=== PATIENT | male | born 1925 | race Caucasian/White ===

== ENCOUNTER 2017-04-08 14:07 | Emergency (ER) | payer MEDICARE, BC ==
--- NOTE | 2017-04-08 14:20 | EDM.PDOC ---
[id number] Complaint: CONSTIPATION Time Seen by Provider: 04/08/17 14:19 Source of Information: Reports: Patient History Limitations: Reports: No Limitations - History of Present Illness INITIAL COMMENTS - FREE TEXT/NARRATIVE: 89-year-old male brought to the ED due to diffuse abdominal pain. His brought him to the ED. History suggests that he said no good bowel movement for about 10 days. He did have a small bowel movement yesterday. Having diffuse abdominal cramping pain with nausea and no vomiting. As constant pressure in the rectum but denies any bleeding per rectum. He feels that he is entering his bladder satisfactorily. No recent changes to his medications and then adjustments to his Coumadin doses. Of note he is on carbidopa levodopa for the last 3-1/2 years for Parkinson's disease. He may well have an autonomic nervous system dysfunction tubing to his constipation. He has been using Senokot on a when necessary basis. Onset: Gradual Onset Date: 03/29/17 Duration: Day(s): Location: Reports: Abdomen (See history present illness) Quality: Reports: Ache, Other Severity: Moderate (Cramping) Improves with: Reports: None Worsens with: Reports: Eating Context: Denies: Activity, Exercise, Lifting, Sick Contact, Trauma, Other Associated Symptoms: Reports: Loss of Appetite, Malaise, Syncope (Near-syncope a good portion of the time). 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 (see below) (No recent use of suppositories or oral Citroma.) Abdominal Pain Score (Numeric/FACES): 2 - Related Data Allergies Allergy/AdvReac Type Severity Reaction Status Date / Time Penicillins Allergy Unknown Verified 04/08/17 14:24 Home Meds: Home Meds Albuterol [Ventolin HFA] 2 puff INH Q6H PRN 02/02/15 [History] Ascorbate Calcium [Vitamin C] 500 mg PO DAILY 02/02/15 [History] Carbidopa/Levodopa [Carbidopa-Levodopa 25-100] 1 tab PO BID 02/02/15 [History] Ergocalciferol (Vitamin D2) [Vitamin D] 400 units PO DAILY 02/02/15 [History] Fluticasone/Salmeterol [Advair Diskus 250-50] 1 puff INH BID 02/02/15 [History] Furosemide 40 mg PO DAILY 02/02/15 [History] Lecithin 1 tab PO DAILY 02/02/15 [History] Lisinopril 5 mg PO DAILY 02/02/15 [History] Tamsulosin [Flomax] 0.4 mg PO DAILY 02/02/15 [History] Vitamin A 8,000 units PO DAILY 02/02/15 [History] Vitamin B Complex 100 mg PO DAILY 02/02/15 [History] Vitamin E 400 unit PO DAILY 02/02/15 [History] Warfarin [Coumadin] 2.5 mg PO WEFR 02/02/15 [History] Warfarin [Coumadin] 5 mg PO SUMOTUTHSA 02/02/15 [History] Levofloxacin [Levaquin] 750 mg PO Q48H #7 tab 02/03/15 [Rx] Past Medical History Gastrointestinal History: Reports: Other (See Below) Other Gastrointestinal History: multiple hernias Neurological History: Reports: Other (See Below) Other Neuro History: brain aneurysm repair - Past Surgical History Musculoskeletal Surgical History: Reports: Other (See Below) Social & Family History - Tobacco Use Smoking Status *Q: Never Smoker Second Hand Smoke Exposure: No - Alcohol Use Days Per Week of Alcohol Use: 0 - Recreational Drug Use Recreational Drug Use: No - Living Situation & Occupation Living situation: Reports: Occupation: Retired ED [employer] GENER[employer] - Review of Systems Review Of Systems: See Below Constitutional: Reports: Malaise, Weakness, Fatigue, Decreased Appetite, Weight Loss. Denies: Fever, Chills HEENT: Reports: Glasses Respiratory: Reports: Shortness of Breath. Denies: Wheezing, Pleuritic Chest Pain (On exertion), Cough, Sputum Cardiovascular: Reports: Blood Pressure Problem (Mild hypertension but controlled with medication.), Dyspnea on Exertion, Lightheadedness (Seems to exhibit orthostatic hypotension a good portion of the time suggesting an autonomic nervous system dysfunction. This may be being aggravated by alpha- ye in Flomax.). Denies: Chest Pain (Chronically) Endocrine: Reports: Fatigue GI/Abdominal: Reports: Abdominal Pain, Constipation (Cramping. Chronic prongs of constipation). Denies: Hematemesis, Hematochezia, Melena, Stool Incontinence , Vomiting : Reports: Frequency, Other (Has a big prostate. Nocturia 3) Musculoskeletal: Reports: Joint Pain (Knees hips low back neck and shoulders at times.) Skin: Reports: Bruising Neurological: Reports: Dizziness, Syncope (Near syncope often nearly faints), Difficulty Walking ( when he stands up.chronically due to Parkinson's disease and I suspect orthostatic hypotension. ), Weakness. Denies: Confusion, Headache Psychiatric: Reports: No Symptoms Hematologic/Lymphatic: Reports: No Symptoms Immunologic: Reports: No Symptoms ED EXAM, GI/ABD - Physical Exam Exam: See Below Exam Limited By: Other (He is a little hard of hearing a little slow to respond. ) General Appearance: Alert, No Apparent Distress Eyes: Bilateral: Normal Appearance Head: Atraumatic, Normocephalic Neck: Normal Inspection, Non-Tender, Full Range of Motion. No: Lymphadenopathy (L), Lymphadenopathy (R) Respiratory/Chest: No Respiratory Distress, Lungs Clear, Normal Breath Sounds, No Accessory Muscle Use, Decreased Breath Sounds (Are mildly decreased in both bases.) Cardiovascular: Regular Rate, Rhythm, No Edema, No Gallop, Systolic Murmur ( Grade 1-2 pansystolic ejection murmur heard best at the left lateral sternal border. There is also a very early diastolic murmur. Radiates towards the neck. Not towards the axilla.). No: Normal Peripheral Pulses GI/Abdominal Exam: Normal Bowel Sounds, Other (The abdomen is firm to palpation. He has a small umbilical hernia. He has a right inguinal hernia that is not incarcerated and easily reducible. Previous right inguinal hernia repair ) Back Exam: Normal Inspection, Full Range of Motion. No: CVA Tenderness (L), CVA Tenderness (R) Extremities: Normal Inspection, Normal Range of Motion, Non-Tender, No Pedal Edema, Normal Capillary Refill Neurological: Alert, Oriented, CN II-XII Intact, Normal Cognition. No: Normal Gait, No Motor/Sensory Deficits Psychiatric: Flat Affect Skin Exam: Warm, Dry, Intact, Normal Color, No Rash Course - Vital Signs Last Recorded V/S: Last Vital Signs Temp 35.9 C 04/08/17 14:19 Pulse 98 04/08/17 16:51 Resp 16 04/08/17 16:51 BP 155/94 H 04/08/17 16:51 Pulse Ox 100 04/08/17 16:51 - Orders/Labs/Meds Orders: Active Orders 24 hr Category Date Time Status Enema [RC] ASDIRECTED Care 04/08/17 16:00 Active Kirk Catheter Insertion [Insert Urinary Catheter] [OM. Care 04/08/17 15:15 Ordered PC] Q24H Urinary Catheter Assessment [RC] ASDIRECTED Care 04/08/17 15:11 Active Abdomen 1V Flat [CR] Stat Exams 04/08/17 14:28 Taken Labs: Laboratory Tests 04/08/17 Range/Units 15:38 Urine Color Yellow (Yellow) Urine Appearance Clear (Clear) Urine pH 6.5 (5.0-8.0) Ur Specific [place] 1.015 (1.005-1.030) Urine Protein Negative (Negative) Urine Glucose (UA) Negative (Negative) Urine Ketones Negative (Negative) Urine Occult Blood Negative (Negative) Urine Nitrite Negative (Negative) Urine Bilirubin Negative (Negative) Urine Urobilinogen 0.2 (0.2-1.0) Ur Leukocyte Esterase Negative (Negative) Urine RBC 0-5 (0-5) /hpf Urine WBC 0-5 (0-5) /hpf Ur Epithelial Cells 0-5 (0-5) /hpf Urine Bacteria Rare (FEW) /hpf Urine Mucus Not seen (FEW) /hpf Meds: Medications Discontinued Medications Generic Name Dose Route Start Last Admin Trade Name Freq PRN Reason Stop Dose Admin Lidocaine HCl 10 ml 04/08/17 14:27 04/08/17 15:56 Xylocaine 2% Jelly MUCMEM 04/08/17 14:28 10 ml ONETIME ONE Administration Magnesium Citrate 240 ml 04/08/17 16:16 04/08/17 16:26 Citrate Of Magnesia PO 04/08/17 16:17 240 ml ONETIME ONE Administration - Radiology Interpretation Free Text/Narrative:: 89-year-old male presents to the ED with generalized lower abdominal cramping pain. He's had troubles with constipation for many years but hasn't had a good bowel movement down about 10 days. His states he takes Senokot almost on a daily basis. They have not given him any Citroma recently and has not used any suppositories. He complains of constant pressure in the rectum but no bleeding. Benign abdominal examination. Then he will have a post residual bladder scan to make sure that he's attempting his bladder completely. KUB will be done to see the extent of his constipation. - Re-Assessments/Exams Free Text/Narrative Re-Assessment/Exam: 04/08/17 15:12 bladder scan reveals 700 mils of urine that was done pre- voiding. Patient got up and voided about 4 drops of urine. Therefore he is in urinary retention. He will have a Kirk catheter placed and left in place with a leg bag at this time. KUB has not yet been done. Urinalysis was also ordered. 04/08/17 16:01 KUB reveals a large bolus of stool in the rectal vault. There is scattered stool throughout the left hemicolon without any bowel obstruction. The right hemicolon for the most part is empty. I will therefore proceed with a Fleet enema with mineral oil to get rid of the stool bolus in the rectum. He's going to need an indwelling Kirk catheter until he can follow up with Dr. Jefry Torres. Decision will be have to be made at that time at 12 or not surgical intervention is required versus leaving him on indwelling Kirk catheter. Obviously obstructed. The urinary tract obstruction is likely contributing to the current chronic constipation as well. The problem is being on Coumadin. He would have to be off Coumadin for a week and have bridge therapy with Lovenox or alternative medicines until he could have surgery. I will leave this up to his personal physician to arrange. 04/08/17 16:17 patient was unable to retain Fleet enema with mineral at all. Therefore will send him home with Citroma 8 ounces by mouth next with 4-5 ounces of juice of choice orally once to provide bowel cleanse. Most of the problem is actually rectal stool bolus. I'm going to suggest that he return to MiraLAX powder 17 g or 1 scoop at least daily and maybe for a while twice daily until regular bowel movements occur. I will have him follow-up with his personal care physician within the next week to arrange for Dr. Holloway or alternative urologist to see him in consultation regarding his obstructed bladder. Kirk catheter is to remain in place until followed up by urology. Patient used to see Dr. Hollingsworth before he left [place]. Departure - Departure Time of Disposition: 16:19 Disposition: Home, Self-Care 01 Condition: Fair Clinical Impression: Constipation by delayed colonic transit, Urinary retention due to benign prostatic hyperplasia - Discharge Information Instructions: Constipation, Adult Referrals: Christ Hull MD [Primary Care Provider] - Forms: ED Department Discharge Additional Instructions: Evaluation the emergency room today in regards to diffuse lower abdominal pressure discomfort and no good bowel movement for 10 days. 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 However on examination her lower abdomen felt for than I would expect. Therefore bladder scan was done and revealed over 700 mils of urine in the urinary bladder. You were hardly able to void any urine after this on her own volition. Therefore there is significant obstruction to the urine outflow due to enlarged prostate gland. Kirk catheter was therefore placed to drain the bladder and is to stay in place until follow-up with urologist to assess need for further intervention. Unfortunately further medications are likely to be of benefit as you are already experiencing significant dizziness or orthostatic hypotension from the Parkinson disease and Flomax that you're already taking. Currently taking warfarin is a barrier to surgical procedures but we can work around it if we need to. The urine test today is clear and no signs of infection are evident. An x-ray of the abdomen also confirmed problems with constipation particularly large stool bolus in the rectum itself. You're unable to retain any of the Fleet enema that we instilled. Therefore treatment is from above and suggest taking 8 ounces of Citroma mixed with 4-5 ounces of juice or Gatorade Powerade orally once to provide bowel cleanse. After this I would strongly suggest use of MiraLAX powder 17 g which is 1 scoop I would suggest starting with 1 scoop twice daily until bowels are working normally or you develop loose stools. Then back off to 1 scoop once daily. Better than it almost all the other medicines of the market keep the bowels more regular. Follow-up with her personal physician in the next week to help arrange follow- up with a urologist in [place] to address the bladder obstruction problem. - My Orders Last 24 Hours: My Active Orders 04/08/17 14:28 Abdomen 1V Flat [CR] Stat 04/08/17 15:11 Urinary Catheter Assessment [RC] ASDIRECTED 04/08/17 15:15 Kirk Catheter Insertion [Insert Urinary Catheter] [OM.PC] Q24H 04/08/17 16:00 Enema [RC] ASDIRECTED - Assessment/Plan Last 24 Hours: My Active Orders 04/08/17 14:28 Abdomen 1V Flat [CR] Stat 04/08/17 15:11 Urinary Catheter Assessment [RC] ASDIRECTED 04/08/17 15:15 Kirk Catheter Insertion [Insert Urinary Catheter] [OM.PC] Q24H 04/08/17 16:00 Enema [RC] ASDIRECTED
[2017-04-08] MEDS ORDERED: Lidocaine 2% Jelly 10 ML Urojet MUCMEM ONE (14:27)
[2017-04-08] MEDS ORDERED: Magnesium Citrate Solution 296 ML Bottle PO ONE (16:16)
[2017-04-08 16:54] VITALS: BP 155/94
--- NOTE | 2017-04-09 08:58 | CR ---
Abdomen: Supine view of the abdomen was obtained. Scattered gas within colon and small bowel is seen believed to be within normal limits. Extensive vascular calcification is noted. Scattered degenerative change is seen throughout the spine. Blunting of the costophrenic angles are seen possibly due to small pleural effusions. Heart is enlarged. Impression: 1. Possible small bilateral pleural effusions. Cardiomegaly is noted. 2. Other incidental findings. Diagnostic code #3
== END 2017-04-08 16:35 | disposition home or self-care (01) ==
LOC: JD.ED 14:07
DX: N40.1 Benign prostatic hyperplasia with lower urinary tract symptoms (principal); R33.8 Other retention of urine; K59.01 Slow transit constipation; Z88.0 Allergy status to penicillin; Z79.899 Other long term (current) drug therapy; Z79.01 Long term (current) use of anticoagulants
CPT/HCPCS: 51702; 51798; 74000; 81001; 99284; A9270; 99283

== ENCOUNTER 2017-05-15 15:24 | Inpatient (IN) | payer MEDICARE, BC ==
--- NOTE | 2017-05-15 16:28 | PCM.HP ---
H&P History of Present Illness - General Date of Service: 05/15/17 Admit Problem/Dx: Sepsis and UTI Source of Information: Patient, Family, Old Records, Provider, RN Notes Reviewed , Significant Other History Limitations: Reports: Physical Impairment - History of Present Illness Initial Comments - Free Text/Narative: This is an 89-year-old elderly white male with past medical history of parkinsonian syndrome, chronic atrial fibrillation on warfarin, and history of CVA who was initially seen at his primary care provider's clinic for evaluation of generalized weakness. His symptom is associated with chills, cough, fatigue, subjective fever, and urinary symptoms. His symptom started yesterday and has progressively getting worse. His baseline functional status is mostly bed and e- chair-bound. Patient carries a history of BPH and history of bladder cancer. He has a scheduled to see his urologist for planned cystoscopy. Patient has an indwelling Jeffery catheter for 6 weeks now. His Jeffery catheter was changed at the clinic prior to coming to us for direct admission. His initial vitals at the clinic shows the following: blood pressure of 89/53 millimeters per mercury, heart rate of 69 bpm, temperature of 99.7F, and O2 sat of 91% on room air. His initial workup at the clinic shows a CBC remarkable for WBC of 14.6, RBC of 3.65, hemoglobin of 11.7, hematocrit 35.7, and platelet of 137. His chemistry is remarkable for glucose of 105, albumin of 2.9, alkaline phosphatase of 151, and total bilirubin 1.4. CRP is 128.9. His chest x-ray report reads small bilateral pleural effusions with associated atelectasis. Cardiomegaly. Tortuous aorta. Normal vasculature. Upper chest is clear. Rotator cuff disease suspected right shoulder. His UA showed positive for leukocyte esterase protein and nitrite. The patient was sent to me as direct admit for medical management of sepsis secondary to urinary tract infection from indwelling Jeffery catheter. He is DNR/ DNI. - Related Data Allergies/Adverse Reactions: Allergies Allergy/AdvReac Type Severity Reaction Status Date / Time Penicillins Allergy Unknown Verified 04/08/17 14:24 Home Medications: Home Meds Albuterol [Ventolin HFA] 2 puff INH Q6H PRN 02/02/15 [History] Ascorbate Calcium [Vitamin C] 500 mg PO DAILY 02/02/15 [History] Carbidopa/Levodopa [Carbidopa-Levodopa 25-100] 1 tab PO TID 02/02/15 [History] Ergocalciferol (Vitamin D2) [Vitamin D] 400 units PO DAILY 02/02/15 [History] Fluticasone/Salmeterol [Advair Diskus 250-50] 1 puff INH BID 02/02/15 [History] Furosemide 40 mg PO DAILY 02/02/15 [History] Lecithin 1 tab PO DAILY 02/02/15 [History] Tamsulosin [Flomax] 0.4 mg PO DAILY 02/02/15 [History] Vitamin A 10,000 units PO DAILY 02/02/15 [History] Vitamin B Complex 100 mg PO DAILY 02/02/15 [History] Vitamin E 400 unit PO DAILY 02/02/15 [History] Warfarin [Coumadin] 2.5 mg PO WEFR 02/02/15 [History] Warfarin [Coumadin] 5 mg PO SUMOTUTHSA 02/02/15 [History] Furosemide 20 mg PO DAILY 05/15/17 [History] Losartan [Cozaar] 50 mg PO DAILY 05/15/17 [History] Nitroglycerin [Nitrostat] 0.4 mg SL ASDIRECTED PRN 05/15/17 [History] Potassium Chloride [Klor-Con 10] 5 meq PO DAILY 05/15/17 [History] Past Medical History HEENT History: Reports: Hard of Hearing Cardiovascular History: Reports: Afib, Hypertension Respiratory History: Reports: Asthma Gastrointestinal History: Reports: Chronic Constipation, Other (See Below) Other Gastrointestinal History: multiple hernias Genitourinary History: Reports: Other (See Below) Other Genitourinary History: bladder CA, now has chronic catheter. last changed 05/15/17. 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 Oncologic (Cancer) History: Reports: Bladder - Past Surgical History HEENT Surgical History: Reports: Cataract Surgery Musculoskeletal Surgical History: Reports: Other (See Below) Social & Family History - Family History Family Medical History: Noncontributory - Tobacco Use Smoking Status *Q: Never Smoker Second Hand Smoke Exposure: No - Caffeine Use Caffeine Use: Reports: Coffee - Alcohol Use Days Per Week of Alcohol Use: 0 - Recreational Drug Use Recreational Drug Use: No - Living Situation & Occupation Living situation: Reports: Occupation: Retired H&P Review of Systems - Review of Systems: Review Of Systems: See Below General: Reports: Fever, Chills, Malaise, Weakness, Fatigue. Denies: Night Sweats, Decreased Appetite HEENT: Reports: No Symptoms Pulmonary: Reports: Cough. Denies: Shortness of Breath Cardiovascular: Denies: Chest Pain, Dyspnea on Exertion, Claudication Gastrointestinal: Denies: Abdominal Pain, Decreased Appetite, Nausea, Vomiting Genitourinary: Reports: Retention, Other (has indwelling jeffery catheter wiht red colored urine) Musculoskeletal: Reports: No Symptoms Skin: Denies: Cyanosis, Pallor, Rash, Erythema Psychiatric: Denies: Confusion, Depression, Anxiety, Agitation, Cravings, Hallucinations, Suicidal Ideation Neurological: Reports: Difficulty Walking, Weakness, Gait Disturbance. Denies: Confusion, Dizziness, Headache, Numbness, Paresthesia, Seizure, Syncope, Tingling, Tremors, Trouble Speaking, Change in Speech Hematologic/Lymphatic: Reports: No Symptoms Immunologic: Reports: No Symptoms Exam - Exam Exam: See Below - Vital Signs Vital Signs: Last Vital Signs Temp 38.1 C 05/15/17 15:30 Pulse Resp 14 05/15/17 15:30 BP 100/55 L 05/15/17 15:30 Pulse Ox 95 05/15/17 15:30 Weight: 66.361 kg - Exam Quality Assessment: Supplemental Oxygen General: Alert, Oriented, Other (Non-toxic). No: Mild Distress HEENT: Conjunctiva Clear, EACs Clear, Hearing Intact, Mucosa Moist & [place], Nares Patent, Normal Nasal Septum, Posterior Pharynx Clear, Pupils Equal, Pupils Reactive, TMs Clear Neck: Supple, Trachea Midline, Full Range of Motion, JVD Lungs: Normal Respiratory Effort, Decreased Breath Sounds, Other (poor inspiratory and expiratory effort) Cardiovascular: Irregular Rhythm, Other (Irregular rate) GI/Abdominal Exam: Normal Bowel Sounds, Soft, Non-Tender, No Organomegaly, No Distention, No Abnormal Bruit, No Mass, Pelvis Stable (Male) Exam: Deferred Rectal (Males) Exam: Deferred, Other (Indwelling jeffery catheter) Back Exam: Normal Inspection, Decreased Range of Motion Extremities: Normal Inspection, Normal Range of Motion, Non-Tender, No Pedal Edema, Normal Capillary Refill Peripheral Pulses: 2+: Posterior Tibial (L), Posterior Tibial (R), Dorsalis Pedis (L), Dorsalis Pedis (R) Skin: Warm, Dry, Intact Neuro Extensive - Mental Status: Oriented x3, Normal Cognition, Memory Intact, Slow Response to Commands Neuro Extensive - Motor, Sensory, Reflexes: CN II-XII Intact (limited due to weakness but faily intact ), Abnormal Gait Psychiatric: Alert, Normal Mood. No: Normal Affect - Patient Data Result Diagrams: 05/16/17 06:17 05/16/17 06:17 *Q Meaningful Use (ADM) - VTE *Q VTE Criteria *Q: - Stroke *Q Stroke Criteria *Q: - AMI *Q AMI Criteria *Q: Problem List Initiated/Reviewed/Updated: Yes Orders Last 24hrs: Active Orders 24 hr Category Date Time Status Regular Diet [DIET] Diet 05/15/17 Dinner Active Assessment/Plan Comment:: Assessment/Plan: Sepsis w/ Hypotension - 2/2 UTI - UA pos for UTI (Large LE and Pos Nitrite) - WBC 14.6 and CRP 128.9 - Fever/chills and hypotensive at the clinic with a documented BP of 89/53 mmHg - Blood CX x2 - IV Hydration - IV Levaquin for empiric coverage Catheter Related UTI - Risk Factors: Indwelling jeffery catheter, BPH and Hx/o Bladder CA - Also bed and e-chair bound - Jeffery catheter was changed at the clinic today - He has a scheduled appointment to see Dr. Fernandez in [place] for cystoscopy - IV Levaquin for pharmacy to dose daily - Awaiting UA Cx/Sx Hypoalbuminemia - Albumin 2.9 - Will consult Dietary to increase protein intake Small Bilateral Pleural Effusions w/ Atelectasis - Clinic CXR report - IS as directed Generalized Weakness - 2/2 above + baseline Parkinsonian Syndrome - PT/OT consult - Vit D and Thyroid panel Cough/Bronchitis - CXR shows Small Bilateral Pleural Effusions w/ Atelectasis - Already on IV ATB - Film not avail to review - Follow up in AM Chronic: HTN SOB with Baseline Supplemental O2 Atrial Fibrillation, HR controlled on warfarin Parkinsonian Syndrome (Not Parkinson's Disease per family) Hx/o CVA Hx/o Bladder CA Plan: Admit to ICU Routine AM Labs Resume Home Meds Consult PT/OT Fall Precautions SW/CM for d/c planning Code status: DNR/DNI
[2017-05-15] MEDS ORDERED: Bisacodyl 5 MG Tab PO PRN (17:43)
[2017-05-15] MEDS ORDERED: Temazepam 7.5 MG Cap PO PRN (17:43)
[2017-05-15] MEDS ORDERED: Acetaminophen/HYDROcodone 325-5 MG Tab PO PRN (17:43)
[2017-05-15] MEDS ORDERED: Acetaminophen 325 MG Tab PO PRN (17:43)
[2017-05-15] MEDS ORDERED: HYDROmorphone 0.5 MG/0.5 ML Syringe IVPUSH PRN (17:43)
[2017-05-15] MEDS ORDERED: Ondansetron 4 MG/2 ML SDV IV PRN (17:43)
[2017-05-15] MEDS ORDERED: Polyethylene Glycol 3350 Powder 17 GM Packet PO PRN (17:43)
[2017-05-15] MEDS ORDERED: Promethazine 12.5 MG in Sodium Chloride 0.9% 50 ML IV PRN (17:43)
[2017-05-15] MEDS ORDERED: LORazepam 2 MG/ML MDV IV PRN (17:43)
[2017-05-15] MEDS ORDERED: Docusate Sodium 100 MG Cap PO PRN (17:43)
[2017-05-15] MEDS ORDERED: Albuterol 6.7 GM Inhaler INH PRN (17:50)
[2017-05-15] MEDS ORDERED: Nitroglycerin 0.4 MG Tab.SL SL PRN (17:50)
[2017-05-15] MEDS ORDERED: hydrALAZINE 20 MG/ML SDV IVPUSH PRN (17:53)
[2017-05-15] MEDS ORDERED: Metoprolol Tartrate 5 MG/5 ML SDV IVPUSH PRN (17:53)
[2017-05-15] MEDS ORDERED: Levofloxacin/Dextrose 5%-Water 750 MG in Premix Bag 1 BAG IV ONE (17:53)
[2017-05-15] MEDS ORDERED: LORazepam 2 MG/ML MDV IVPUSH PRN (17:53)
[2017-05-15] MEDS ORDERED: Warfarin 5 MG Tab PO SCH (18:00)
[2017-05-15] MEDS: Sodium Chloride 0.9% 1,000 ML IV SCH (18:53)
[2017-05-15] MEDS: Carbidopa/Levodopa 25-100 MG Tab PO SCH (20:10)
[2017-05-15] MEDS: Formoterol/Mometasone 200-5 MCG 8.8 GM Inhaler IH SCH (20:25)
[2017-05-15] MEDS ORDERED: Saccharomyces Boulardii (Probiotic) 250 MG Cap PO ONE (21:00)
[2017-05-16] MEDS: Sodium Chloride 0.9% 1,000 ML IV SCH (02:53)
[2017-05-16] MEDS: LECITHIN PO SCH (08:13)
[2017-05-16] MEDS: Formoterol/Mometasone 200-5 MCG 8.8 GM Inhaler IH SCH ×2 (08:16→20:51)
[2017-05-16] MEDS: Ascorbic Acid 500 MG Tab PO SCH (08:22)
[2017-05-16] MEDS: Vitamin E (dl-alpha-tocopherol acetate) 400 Unit Cap PO SCH (08:22)
[2017-05-16] MEDS: Vitamin B Complex With Vitamin C Cap PO SCH (08:22)
[2017-05-16] MEDS: Carbidopa/Levodopa 25-100 MG Tab PO SCH ×3 (08:22→17:32)
[2017-05-16] MEDS: Cholecalciferol (Vitamin D3) 1,000 Unit Tab PO SCH (08:22)
[2017-05-16] MEDS: Saccharomyces Boulardii (Probiotic) 250 MG Cap PO SCH (08:22)
[2017-05-16] MEDS: Potassium Chloride 10 MEQ Tab.ER PO SCH (08:22)
[2017-05-16] MEDS: Losartan 25 MG Tab PO SCH (08:23)
[2017-05-16] MEDS: Furosemide 20 MG Tab PO SCH (08:23)
[2017-05-16] MEDS: Tamsulosin 0.4 MG Cap.ER PO SCH (08:23)
--- NOTE | 2017-05-16 08:33 | PCM.PN ---
- General Info Date of Service: 05/16/17 Admission Dx/Problem (Free Text): Sepsis and UTI Subjective Update: Follow up Functional Status: Reports: Pain Controlled, Tolerating Diet, Urinating. Denies : New Symptoms - Review of Systems General: Denies: Fever, Chills HEENT: Reports: No Symptoms Pulmonary: Denies: Shortness of Breath Cardiovascular: Denies: Chest Pain Gastrointestinal: Denies: Abdominal Pain, Nausea, Vomiting Genitourinary: Denies: Dysuria, Flank Pain Musculoskeletal: Reports: No Symptoms Skin: Denies: Cyanosis, Jaundice, Pruritis Neurological: Reports: Pre-Existing Deficit, Difficulty Walking, Weakness, Gait Disturbance. Denies: Confusion Psychiatric: Denies: Confusion, Depression, Anxiety, Agitation, Hallucinations Systems Review Comment:: No significant overnight or acute issues. He feels a little better. His INR is elevated at 3.13. He is afebrile and his WBC is now 13.10 from 14.6. His CRP is 17.9. He has no new complaints. - Patient Data Vitals - Most Recent: Last Vital Signs Temp 36.9 C 05/16/17 07:47 Pulse 67 05/16/17 07:47 Resp 18 05/16/17 07:47 BP 118/63 05/16/17 08:23 Pulse Ox 95 05/16/17 08:18 Weight - Most Recent: 66.361 kg I&O - Last 24 Hours: Intake & Output 05/15/17 05/16/17 05/16/17 22:59 06:59 14:59 Intake Total 340 1403 Output Total 261 320 Balance 79 1083 Lab Results Last 24 Hours: Laboratory Results - last 24 hr 05/15/17 05/16/17 05/16/17 Range/Units 18:05 06:17 06:17 WBC 13.10 H (4.23-9.07) K/mm3 RBC 3.24 L (4.63-6.08) M/mm3 Hgb 10.5 L (13.7-17.5) gm/L Hct 31.4 L (40.1-51.0) % MCV 96.9 H (79.0-92.2) fl MCH 32.4 H (25.7-32.2) pg MCHC 33.4 (32.2-35.5) g/dl RDW Std Deviation 50.2 H (35.1-43.9) fL Plt Count 125 L (163-337) K/mm3 MPV 10.7 (9.4-12.3) fl Neut % (Auto) 82.6 H (34.0-67.9) % Lymph % (Auto) 9.8 L (21.8-53.1) % [place] % (Auto) 6.9 (5.3-12.2) % Eos % (Auto) 0.2 L (0.8-7.0) Baso % (Auto) 0.2 (0.1-1.2) % Neut # (Auto) 10.80 H (1.78-5.38) K/mm3 Lymph # (Auto) 1.29 L (1.32-3.57) K/mm3 [place] # (Auto) 0.91 H (0.30-0.82) K/mm3 Eos # (Auto) 0.03 L (0.04-0.54) K/mm3 Baso # (Auto) 0.03 (0.01-0.08) K/mm3 Manual Slide Review Abnormal smear PT 32.4 H (8.0-13.0) SECONDS INR 2.78 Sodium 135 L (136-145) mEq/L Potassium 3.6 (3.5-5.1) mEq/L Chloride 102 (98-107) mEq/L Carbon Dioxide 29 (21-32) mEq/L Anion Gap 7.6 (5-15) BUN 26 H (7-18) mg/dL Creatinine 1.0 (0.7-1.3) mg/dL Est Cr Clr Drug Dosing 47.01 mL/min Estimated GFR (MDRD) > 60 (>60) mL/min BUN/Creatinine Ratio 26.0 H (14-18) Glucose 92 (83-115) mg/dL Calcium 8.5 (8.5-10.1) mg/dL Magnesium 1.8 (1.8-2.4) mg/dl C-Reactive Protein 17.9 H* (<1.0) mg/dL 05/16/17 Range/Units 06:17 WBC (4.23-9.07) K/mm3 RBC (4.63-6.08) M/mm3 Hgb (13.7-17.5) gm/L Hct (40.1-51.0) % MCV (79.0-92.2) fl MCH (25.7-32.2) pg MCHC (32.2-35.5) g/dl RDW Std Deviation (35.1-43.9) fL Plt Count (163-337) K/mm3 MPV (9.4-12.3) fl Neut % (Auto) (34.0-67.9) % Lymph % (Auto) (21.8-53.1) % [place] % (Auto) (5.3-12.2) % Eos % (Auto) (0.8-7.0) Baso % (Auto) (0.1-1.2) % Neut # (Auto) (1.78-5.38) K/mm3 Lymph # (Auto) (1.32-3.57) K/mm3 [place] # (Auto) (0.30-0.82) K/mm3 Eos # (Auto) (0.04-0.54) K/mm3 Baso # (Auto) (0.01-0.08) K/mm3 Manual Slide Review PT 36.7 H (8.0-13.0) SECONDS INR 3.13 Sodium (136-145) mEq/L Potassium (3.5-5.1) mEq/L Chloride (98-107) mEq/L Carbon Dioxide (21-32) mEq/L Anion Gap (5-15) BUN (7-18) mg/dL Creatinine (0.7-1.3) mg/dL Est Cr Clr Drug Dosing mL/min Estimated GFR (MDRD) (>60) mL/min BUN/Creatinine Ratio (14-18) Glucose (83-115) mg/dL Calcium (8.5-10.1) mg/dL Magnesium (1.8-2.4) mg/dl C-Reactive Protein (<1.0) mg/dL Andrew Results Last 24 Hours: Microbiology 05/15/17 18:44 Urine Culture - Preliminary Urine, Jeffery Cath (Indwelling) Gram Negative Rods Med Orders - Current: Current Medications Acetaminophen (Tylenol) 650 mg PO Q4H PRN PRN Reason: Pain (Mild 1-3)/fever Hydrocodone Bitart/Acetaminophen (Kewadin 325-5 Mg) 1 tab PO Q4H PRN PRN Reason: Pain (moderate 4-6) Albuterol (Proventil Hfa) 0 gm INH Q6H PRN PRN Reason: Shortness of Breath Albuterol/Ipratropium (Duoneb 3.0-0.5 Mg/3 Ml) 3 ml NEB Q4H PRN PRN Reason: Shortness Of Breath/wheezing Ascorbic Acid (Vitamin C) 500 mg PO DAILY [facility] Last Admin: 05/16/17 08:22 Dose: 500 mg Bisacodyl (Dulcolax) 5 mg PO DAILY PRN PRN Reason: Constipation Carbidopa/Levodopa (Sinemet 25-100 Mg) 1 tab PO TIDAC [facility] Last Admin: 05/16/17 08:22 Dose: 1 tab Cholecalciferol (Vitamin D3) 500 units PO DAILY [facility] Last Admin: 05/16/17 08:22 Dose: 500 units Docusate Sodium (Colace) 100 mg PO BID PRN PRN Reason: Constipation Furosemide (Lasix) 20 mg PO DAILY [facility] Last Admin: 05/16/17 08:23 Dose: 20 mg Hydralazine HCl (Apresoline) 10 mg IVPUSH Q4H PRN PRN Reason: Hypertension Hydromorphone HCl (Dilaudid) 0.25 mg IVPUSH Q4H PRN PRN Reason: Pain (severe 7-10) Promethazine HCl 12.5 mg/ (Sodium Chloride) 50.5 mls @ 100 mls/hr IV Q6H PRN PRN Reason: Nausea/Vomiting Sodium Chloride (Normal Saline) 1,000 mls @ 125 mls/hr IV ASDIRECTED [facility] Last Admin: 05/16/17 02:53 Dose: 125 mls/hr Levofloxacin/Dextrose 500 mg/ (Premix) 100 mls @ 100 mls/hr IV Q24H [facility] Lorazepam (Ativan) 0.25 mg IV Q6H PRN PRN Reason: Anxiety Lorazepam (Ativan) 2 mg IVPUSH Q4H PRN PRN Reason: Seizures Losartan Potassium (Cozaar) 50 mg PO DAILY [facility] Last Admin: 05/16/17 08:23 Dose: 50 mg Magnesium Sulfate (Pharmacy To Dose - Magnesium Replacement) 0 dose .XX ASDIRECTED PRN PRN Reason: RX TO WATCH MAG LEVELS Metoprolol Tartrate (Lopressor) 5 mg IVPUSH Q4H PRN PRN Reason: Tachycardia Mometasone Furoate/Formoterol Fumar (Dulera 200-5 Mcg) 2 puff IH BIDRT [facility] Last Admin: 05/16/17 08:16 Dose: 2 puff Nitroglycerin (Nitrostat) 0.4 mg SL ASDIRECTED PRN PRN Reason: Chest Pain Ondansetron HCl (Zofran) 4 mg IV Q6H PRN PRN Reason: Nausea/Vomiting Lecithin Tablets 0 each PO DAILY [facility] Last Admin: 05/16/17 08:13 Dose: Not Given Vitamin A 10,000 (Units) 0 each PO DAILY [facility] Last Admin: 05/16/17 08:13 Dose: Not Given Polyethylene Glycol (Miralax) 17 gm PO DAILY PRN PRN Reason: Constipation Potassium Chloride (Klor-Con 10) 5 meq PO DAILY [facility] Last Admin: 05/16/17 08:22 Dose: 5 meq Potassium Chloride (Pharmacy To Dose - Potassium Replacement) 0 dose .XX ASDIRECTED PRN PRN Reason: RX TO WATCH K LEVELS Saccharomyces Boulardii (Florastor) 250 mg PO DAILY [facility] Last Admin: 05/16/17 08:22 Dose: 250 mg Senna/Docusate Sodium (Senna Plus) 1 tab PO BID PRN PRN Reason: Constipation Tamsulosin HCl (Flomax) 0.4 mg PO DAILY [facility] Last Admin: 05/16/17 08:23 Dose: 0.4 mg Temazepam (Restoril) 7.5 mg PO BEDTIME PRN PRN Reason: Sleep Vitamin B Complex/Vitamin C (Super B With Vitamin C) 1 cap PO DAILY [facility] Last Admin: 05/16/17 08:22 Dose: 1 cap Vitamin E (Vitamin E) 400 units PO DAILY [facility] Last Admin: 05/16/17 08:22 Dose: 400 units Warfarin Sodium (Coumadin) 2.5 mg PO WeFr@1800 [facility] Warfarin Sodium (Coumadin) 5 mg PO SuMoTuThSa@1800 [facility] Last Admin: 05/15/17 20:10 Dose: 5 mg Discontinued Medications Levofloxacin/Dextrose 750 mg/ (Premix) 150 mls @ 100 mls/hr IV ONETIME ONE Stop: 05/15/17 19:22 Last Admin: 05/15/17 18:54 Dose: 100 mls/hr Saccharomyces Boulardii (Florastor) 250 mg PO ONETIME ONE Stop: 05/15/17 21:01 Last Admin: 05/15/17 20:10 Dose: 250 mg - Exam Quality Assessment: Supplemental Oxygen General: Alert, Oriented, Cooperative, No Acute Distress HEENT: Pupils Equal, Pupils Reactive, EOMI, Mucous Membr. Moist/Descanso Neck: Supple, Trachea Midline, No JVD Lungs: Normal Respiratory Effort, Decreased Breath Sounds Cardiovascular: Irregular Rhythm GI/Abdominal Exam: Normal Bowel Sounds, Soft, Non-Tender, No Organomegaly, No Distention, No Abnormal Bruit, No Mass (Male) Exam: Other (indwelling jeffery catheter with clear merrill urine ) Back Exam: Normal Inspection, Decreased Range of Motion Extremities: Normal Inspection, Normal Range of Motion, Non-Tender, No Pedal Edema, Normal Capillary Refill Peripheral Pulses: 2+: Dorsalis Pedis (L), Dorsalis Pedis (R) Skin: Warm, Dry, Intact Neurological: No New Focal Deficit Psy/Mental Status: Alert, Normal Affect, Normal Mood - Problem List Review Problem List Initiated/Reviewed/Updated: Yes - My Orders Last 24 Hours: My Active Orders 05/15/17 17:43 Patient Status [ADT] Routine Height and Weight [RC] DAILY Oxygen Therapy [RC] PRN Up With Assistance [RC] ASDIRECTED Up ad Jennifer [RC] ASDIRECTED VTE/DVT Education [RC] PER UNIT ROUTINE Vital Signs [RC] Q4HR Acetaminophen [Tylenol] 650 mg PO Q4H PRN Acetaminophen/HYDROcodone [[place] 325-5 MG] 1 tab PO Q4H PRN Albuterol/Ipratropium [DuoNeb 3.0-0.5 MG/3 ML] 3 ml NEB Q4H PRN Bisacodyl [Dulcolax] 5 mg PO DAILY PRN Docusate Sodium [Colace] 100 mg PO BID PRN Docusate Sodium/Sennosides [Senna Plus] 1 tab PO BID PRN HYDROmorphone [Dilaudid] 0.25 mg IVPUSH Q4H PRN LORazepam [Ativan] 0.25 mg IV Q6H PRN Ondansetron [Zofran] 4 mg IV Q6H PRN Polyethylene Glycol 3350 [MiraLAX] 17 gm PO DAILY PRN Promethazine [Phenergan] 12.5 mg Sodium Chloride 0.9% [Normal Saline] 50 ml IV Q6H Temazepam [Restoril] 7.5 mg PO BEDTIME PRN Resuscitation Status Routine 05/15/17 17:45 Cardiac Monitoring [RC] CONTINUOUS Intake and Output [RC] QSHIFT Sodium Chloride 0.9% [Normal Saline] 1,000 ml IV ASDIRECTED Sequential Compression Device [OM.PC] Per Unit Routine 05/15/17 17:46 Antiembolic Devices [RC] PER UNIT ROUTINE 05/15/17 17:47 RT Aerosol Therapy [RC] ASDIRECTED 05/15/17 17:48 Consult to Case Management [CONS] Routine Consult to Automobile Mechanic Assistant [CONS] Routine Consult to Spiritual Care [CONS] Routine OT Evaluation and Treatment [CONS] Routine PT Evaluation and Treatment [CONS] Routine Blood Culture x2 Reflex Set [OM.PC] Stat 05/15/17 17:50 Albuterol [Proventil HFA] 0 gm INH Q6H PRN Nitroglycerin [Nitrostat] 0.4 mg SL ASDIRECTED PRN 05/15/17 17:53 LORazepam [Ativan] 2 mg IVPUSH Q4H PRN Metoprolol Tartrate [Lopressor] 5 mg IVPUSH Q4H PRN hydrALAZINE [Apresoline] 10 mg IVPUSH Q4H PRN 05/15/17 18:00 Magnesium Rep Pharmacy to Dose [Pharmacy to Dose - Magnesium Replacement] 0 dose .XX ASDIRECTED PRN Potassium Rep Pharmacy to Dose [Pharmacy to Dose - Potassium Replacement] 0 dose .XX ASDIRECTED PRN Warfarin [Coumadin] 5 mg PO SuMoTuThSa@1800 05/15/17 18:05 CULTURE BLOOD [BC] Stat 05/15/17 18:20 CULTURE BLOOD [BC] Stat 05/15/17 18:44 CULTURE URINE [RM] Stat 05/15/17 21:00 Carbidopa/Levodopa [Sinemet 25-100 mg] 1 tab PO TIDAC Mometasone/Formoterol [Dulera 200-5 MCG] 2 puff IH BIDRT 05/15/17 Dinner Regular Diet [DIET] 05/16/17 09:00 Ascorbic Acid [Vitamin C] 500 mg PO DAILY Cholecalciferol (Vitamin D3) [Vitamin D3] 500 units PO DAILY Furosemide [Lasix] 20 mg PO DAILY Losartan [Cozaar] 50 mg PO DAILY Patient's Own Medication [Ptom] 0 each PO DAILY Patient's Own Medication [Ptom] 0 each PO DAILY Potassium Chloride [Klor-Con 10] 5 meq PO DAILY Saccharomyces Boulardii [Florastor] 250 mg PO DAILY Tamsulosin [Flomax] 0.4 mg PO DAILY Vitamin B Complex with C [Super B With Vitamin C] 1 cap PO DAILY Vitamin E (dl, acetate) [Vitamin E] 400 units PO DAILY 05/16/17 18:00 Warfarin [Coumadin] 2.5 mg PO WeFr@1800 05/16/17 19:00 Levofloxacin/Dextrose 5%-Water [Levaquin in D5W 500 MG/100 ML] 500 mg Premix Bag 1 bag IV Q24H 05/17/17 05:11 BASIC METABOLIC PANEL,BMP [CHEM] AM C-REACTIVE PROTEIN [CHEM] AM CBC WITH AUTO DIFF [HEME] AM INR,PT,PROTHROMBIN TIME [COAG] AM MAGNESIUM [CHEM] AM 05/18/17 05:11 BASIC METABOLIC PANEL,BMP [CHEM] AM C-REACTIVE PROTEIN [CHEM] AM CBC WITH AUTO DIFF [HEME] AM INR,PT,PROTHROMBIN TIME [COAG] AM MAGNESIUM [CHEM] AM 05/19/17 05:11 BASIC METABOLIC PANEL,BMP [CHEM] AM C-REACTIVE PROTEIN [CHEM] AM CBC WITH AUTO DIFF [HEME] AM INR,PT,PROTHROMBIN TIME [COAG] AM MAGNESIUM [CHEM] AM 05/20/17 05:11 BASIC METABOLIC PANEL,BMP [CHEM] AM CBC WITH AUTO DIFF [HEME] AM INR,PT,PROTHROMBIN TIME [COAG] AM MAGNESIUM [CHEM] AM - Plan Plan:: Assessment/Plan: Sepsis w/o Hypotension - 2/2 UTI - UA pos for UTI (Large LE and Pos Nitrite) - WBC 14.6 and CRP 128.9 - Fever/chills and hypotensive at the clinic with a documented BP of 89/53 mmHg - Blood CX x2 pending - BPs now stable - Continue IVF at KVO rate - Continue Levaquin for empiric coverage Catheter Related UTI Pos for GNR - Risk Factors: Indwelling jeffery catheter, BPH and Hx/o Bladder CA - Also bed and wheel chair bound - Jeffery catheter was changed at the clinic today - He has a scheduled appointment to see Dr. Fernandez in [place] for cystoscopy - Continue IV Levaquin for pharmacy to dose daily - Awaiting UA Sx Hypoalbuminemia - Albumin 2.9 - Consult Dietary to increase protein intake - Follow up lab in am Small Bilateral Pleural Effusions w/ Atelectasis - Clinic CXR report - IS as directed - Follow Up CXR Generalized Weakness, Slightly Improved - 2/2 above + baseline PD/Parkinsonian Syndrome - Continue PT/OT - Vit D and Thyroid panel-pending Cough/Bronchitis, Unchanged - CXR shows Small Bilateral Pleural Effusions w/ Atelectasis - Continue IV ATB - Mucinex 600 mg po BID - Serial CXR as needed Supratherapeutic INR - Likely 2/2 Levaquin use - Hold dose tonight - Follow up INR in AM Chronic: HTN SOB with Baseline Supplemental O2 Atrial Fibrillation, HR controlled on warfarin Parkinsonian Syndrome (Not Parkinson's Disease per family) Hx/o CVA Hx/o Bladder CA Plan: He is clinically much better Transfer to Med-Surg with Tele Routine AM Labs Continue PT/OT Fall Precautions SW/CM for d/c planning Consider SNF/Rehab placement Code status: DNR/DNI
[2017-05-16] MEDS ORDERED: Warfarin 2.5 MG Tab PO SCH (18:00)
[2017-05-16] MEDS ORDERED: Warfarin Sliding Scale PO SCH (18:00)
[2017-05-16] MEDS ORDERED: Levofloxacin/Dextrose 5%-Water 500 MG in Premix Bag 1 BAG IV SCH (19:00)
--- NOTE | 2017-05-16 19:31 | CR ---
Chest: Frontal view of the chest was obtained. Comparison: Previous chest x-ray of 02/02/15. Small bilateral pleural effusions are seen which are more prominent on the right side. Heart is enlarged. Lungs otherwise are clear. Bony structures are osteopenic. Chronic rotator cuff tear is noted within the right shoulder and possibly left shoulder as well. Impression: 1. Bilateral pleural effusions, worse on the right side. Findings have worsened on the right side from prior study. 2. Other findings as noted above which are felt to be stable. Diagnostic code #3
[2017-05-16] MEDS: guaiFENesin 600 MG Tab.ER PO SCH (20:29)
--- NOTE | 2017-05-17 01:34 | PCM.PN ---
- General Info Date of Service: 05/17/17 Admission Dx/Problem (Free Text): Sepsis and UTI Subjective Update: Follow up Functional Status: Reports: Pain Controlled, Tolerating Diet, Urinating, New Symptoms (did not sleep well last night and hsi mouth is dry waking up) - Review of Systems General: Denies: Fever, Weakness, Chills HEENT: Reports: No Symptoms Pulmonary: Denies: Shortness of Breath Cardiovascular: Denies: Chest Pain Gastrointestinal: Denies: Abdominal Pain, Nausea, Vomiting Genitourinary: Reports: No Symptoms Musculoskeletal: Reports: No Symptoms Skin: Reports: Cyanosis Neurological: Reports: Difficulty Walking, Gait Disturbance. Denies: Confusion , Weakness Psychiatric: Denies: Depression, Anxiety, Agitation, Hallucinations Systems Review Comment:: No acute issues. He feels better otherwise. His WBC is now normal and he remains afebrile. His CRP is down to 15.3 from 17.9. INR is now at 2.94. UA is pos for E. colo sensitive to Levaquin. Blood Cx x 2 are negative. - Patient Data Vitals - Most Recent: Last Vital Signs Temp 36.8 C 05/16/17 21:00 Pulse 68 05/16/17 21:00 Resp 18 05/16/17 21:00 BP 100/65 05/16/17 21:00 Pulse Ox 94 L 05/16/17 21:00 Weight - Most Recent: 66.361 kg I&O - Last 24 Hours: Intake & Output 05/16/17 05/16/17 05/17/17 14:59 22:59 06:59 Intake Total 1020 1868 Output Total 380 Balance 1020 1488 Lab Results Last 24 Hours: Laboratory Results - last 24 hr 05/16/17 05/16/17 05/16/17 Range/Units 06:17 06:17 06:17 WBC 13.10 H (4.23-9.07) K/mm3 RBC 3.24 L (4.63-6.08) M/mm3 Hgb 10.5 L (13.7-17.5) gm/L Hct 31.4 L (40.1-51.0) % MCV 96.9 H (79.0-92.2) fl MCH 32.4 H (25.7-32.2) pg MCHC 33.4 (32.2-35.5) g/dl RDW Std Deviation 50.2 H (35.1-43.9) fL Plt Count 125 L (163-337) K/mm3 MPV 10.7 (9.4-12.3) fl Neut % (Auto) 82.6 H (34.0-67.9) % Lymph % (Auto) 9.8 L (21.8-53.1) % Bremer % (Auto) 6.9 (5.3-12.2) % Eos % (Auto) 0.2 L (0.8-7.0) Baso % (Auto) 0.2 (0.1-1.2) % Neut # (Auto) 10.80 H (1.78-5.38) K/mm3 Lymph # (Auto) 1.29 L (1.32-3.57) K/mm3 Bremer # (Auto) 0.91 H (0.30-0.82) K/mm3 Eos # (Auto) 0.03 L (0.04-0.54) K/mm3 Baso # (Auto) 0.03 (0.01-0.08) K/mm3 Manual Slide Review Abnormal smear PT 36.7 H (8.0-13.0) SECONDS INR 3.13 Sodium 135 L (136-145) mEq/L Potassium 3.6 (3.5-5.1) mEq/L Chloride 102 (98-107) mEq/L Carbon Dioxide 29 (21-32) mEq/L Anion Gap 7.6 (5-15) BUN 26 H (7-18) mg/dL Creatinine 1.0 (0.7-1.3) mg/dL Est Cr Clr Drug Dosing 47.01 mL/min Estimated GFR (MDRD) > 60 (>60) mL/min BUN/Creatinine Ratio 26.0 H (14-18) Glucose 92 (83-115) mg/dL Calcium 8.5 (8.5-10.1) mg/dL Magnesium 1.8 (1.8-2.4) mg/dl C-Reactive Protein 17.9 H* (<1.0) mg/dL Andrew Results Last 24 Hours: Microbiology 05/15/17 18:20 Aerobic Blood Culture - Preliminary Blood - Venous - Lab Draw NO GROWTH AFTER 1 DAY Anaerobic Blood Culture - Preliminary NO GROWTH AFTER 1 DAY 05/15/17 18:05 Aerobic Blood Culture - Preliminary Blood - Venous NO GROWTH AFTER 1 DAY Anaerobic Blood Culture - Preliminary NO GROWTH AFTER 1 DAY 05/15/17 18:44 Urine Culture - Preliminary Urine, Jeffery Cath (Indwelling) Gram Negative Rods Med Orders - Current: Current Medications Acetaminophen (Tylenol) 650 mg PO Q4H PRN PRN Reason: Pain (Mild 1-3)/fever Hydrocodone Bitart/Acetaminophen (Carter 325-5 Mg) 1 tab PO Q4H PRN PRN Reason: Pain (moderate 4-6) Albuterol (Proventil Hfa) 0 gm INH Q6H PRN PRN Reason: Shortness of Breath Albuterol/Ipratropium (Duoneb 3.0-0.5 Mg/3 Ml) 3 ml NEB Q4H PRN PRN Reason: Shortness Of Breath/wheezing Ascorbic Acid (Vitamin C) 500 mg PO DAILY [facility] Last Admin: 05/16/17 08:22 Dose: 500 mg Bisacodyl (Dulcolax) 5 mg PO DAILY PRN PRN Reason: Constipation Carbidopa/Levodopa (Sinemet 25-100 Mg) 1 tab PO TIDAC [facility] Last Admin: 05/16/17 17:32 Dose: 1 tab Cholecalciferol (Vitamin D3) 500 units PO DAILY [facility] Last Admin: 05/16/17 08:22 Dose: 500 units Docusate Sodium (Colace) 100 mg PO BID PRN PRN Reason: Constipation Furosemide (Lasix) 20 mg PO DAILY [facility] Last Admin: 05/16/17 08:23 Dose: 20 mg Guaifenesin (Mucinex) 600 mg PO BID [facility] Last Admin: 05/16/17 20:29 Dose: 600 mg Hydralazine HCl (Apresoline) 10 mg IVPUSH Q4H PRN PRN Reason: Hypertension Hydromorphone HCl (Dilaudid) 0.25 mg IVPUSH Q4H PRN PRN Reason: Pain (severe 7-10) Promethazine HCl 12.5 mg/ (Sodium Chloride) 50.5 mls @ 100 mls/hr IV Q6H PRN PRN Reason: Nausea/Vomiting Levofloxacin/Dextrose 500 mg/ (Premix) 100 mls @ 100 mls/hr IV Q24H [facility] Last Admin: 05/16/17 18:34 Dose: 100 mls/hr Sodium Chloride (Normal Saline) 1,000 mls @ 30 mls/hr IV ASDIRECTED [facility] Lorazepam (Ativan) 0.25 mg IV Q6H PRN PRN Reason: Anxiety Lorazepam (Ativan) 2 mg IVPUSH Q4H PRN PRN Reason: Seizures Losartan Potassium (Cozaar) 50 mg PO DAILY [facility] Last Admin: 05/16/17 08:23 Dose: 50 mg Magnesium Sulfate (Pharmacy To Dose - Magnesium Replacement) 0 dose .XX ASDIRECTED PRN PRN Reason: RX TO WATCH MAG LEVELS Metoprolol Tartrate (Lopressor) 5 mg IVPUSH Q4H PRN PRN Reason: Tachycardia Mometasone Furoate/Formoterol Fumar (Dulera 200-5 Mcg) 2 puff IH BID [facility] Last Admin: 05/16/17 20:51 Dose: 2 puff Nitroglycerin (Nitrostat) 0.4 mg SL ASDIRECTED PRN PRN Reason: Chest Pain Ondansetron HCl (Zofran) 4 mg IV Q6H PRN PRN Reason: Nausea/Vomiting Lecithin Tablets 0 each PO DAILY [facility] Last Admin: 05/16/17 08:13 Dose: Not Given Vitamin A 10,000 (Units) 0 each PO DAILY [facility] Last Admin: 05/16/17 08:13 Dose: Not Given Polyethylene Glycol (Miralax) 17 gm PO DAILY PRN PRN Reason: Constipation Potassium Chloride (Klor-Con 10) 5 meq PO DAILY [facility] Last Admin: 05/16/17 08:22 Dose: 5 meq Potassium Chloride (Pharmacy To Dose - Potassium Replacement) 0 dose .XX ASDIRECTED PRN PRN Reason: RX TO WATCH K LEVELS Saccharomyces Boulardii (Florastor) 250 mg PO DAILY [facility] Last Admin: 05/16/17 08:22 Dose: 250 mg Senna/Docusate Sodium (Senna Plus) 1 tab PO BID PRN PRN Reason: Constipation Tamsulosin HCl (Flomax) 0.4 mg PO DAILY [facility] Last Admin: 05/16/17 08:23 Dose: 0.4 mg Temazepam (Restoril) 7.5 mg PO BEDTIME PRN PRN Reason: Sleep Vitamin B Complex/Vitamin C (Super B With Vitamin C) 1 cap PO DAILY [facility] Last Admin: 05/16/17 08:22 Dose: 1 cap Vitamin E (Vitamin E) 400 units PO DAILY [facility] Last Admin: 05/16/17 08:22 Dose: 400 units Warfarin Sodium (Pharmacy To Dose - Warfarin) 0 dose PO ASDIRECTED PRN PRN Reason: RX TO DOSE Discontinued Medications Sodium Chloride (Normal Saline) 1,000 mls @ 125 mls/hr IV ASDIRECTED [facility] Last Infusion: 05/16/17 11:02 Dose: Infused Levofloxacin/Dextrose 750 mg/ (Premix) 150 mls @ 100 mls/hr IV ONETIME ONE Stop: 05/15/17 19:22 Last Admin: 05/15/17 18:54 Dose: 100 mls/hr Mometasone Furoate/Formoterol Fumar (Dulera 200-5 Mcg) 2 puff IH BIDRT [facility] Last Admin: 05/16/17 08:16 Dose: 2 puff Saccharomyces Boulardii (Florastor) 250 mg PO ONETIME ONE Stop: 05/15/17 21:01 Last Admin: 05/15/17 20:10 Dose: 250 mg Warfarin Sodium (Coumadin) 2.5 mg PO WeFr@1800 [facility] Warfarin Sodium (Coumadin) 5 mg PO SuMoTuThSa@1800 [facility] Last Admin: 05/15/17 20:10 Dose: 5 mg Warfarin Sodium (Coumadin Sliding Scale) 0 each PO DAILY@1800 [facility] Stop: 05/16/17 21:00 Last Admin: 05/16/17 18:49 Dose: Not Given Warfarin Sodium (Pharmacy To Dose - Warfarin) 1 dose PO ASDIRECTED PRN PRN Reason: RX TO DOSE - Exam Quality Assessment: Supplemental Oxygen General: Alert, Cooperative, No Acute Distress HEENT: Pupils Equal, Pupils Reactive, EOMI. No: Mucous Membr. Moist/[place] Neck: Supple, Trachea Midline, No JVD Lungs: Normal Respiratory Effort, Decreased Breath Sounds, Rales Cardiovascular: Irregular Rhythm GI/Abdominal Exam: Normal Bowel Sounds, Soft, Non-Tender, No Organomegaly, No Distention, No Abnormal Bruit, No Mass (Male) Exam: Other (indwelling jeffery catheter) Back Exam: Normal Inspection, Decreased Range of Motion Extremities: Normal Inspection, Normal Range of Motion, Non-Tender, No Pedal Edema, Normal Capillary Refill Peripheral Pulses: 2+: Dorsalis Pedis (L), Dorsalis Pedis (R) Skin: Warm, Dry, Intact Neurological: No New Focal Deficit Psy/Mental Status: Alert, Normal Mood. No: Normal Affect, Agitated, Suicidal Ideation, Homicidal Ideation - Problem List Review Problem List Initiated/Reviewed/Updated: Yes - My Orders Last 24 Hours: My Active Orders 05/16/17 05:11 VITAMIN D 25-HYROXY (D2, D3) [REF] Routine 05/16/17 08:37 Patient Status [ADT] Routine 05/16/17 09:00 Ascorbic Acid [Vitamin C] 500 mg PO DAILY Cholecalciferol (Vitamin D3) [Vitamin D3] 500 units PO DAILY Furosemide [Lasix] 20 mg PO DAILY Losartan [Cozaar] 50 mg PO DAILY Patient's Own Medication [Ptom] 0 each PO DAILY Patient's Own Medication [Ptom] 0 each PO DAILY Potassium Chloride [Klor-Con 10] 5 meq PO DAILY Saccharomyces Boulardii [Florastor] 250 mg PO DAILY Tamsulosin [Flomax] 0.4 mg PO DAILY Vitamin B Complex with C [Super B With Vitamin C] 1 cap PO DAILY Vitamin E (dl, acetate) [Vitamin E] 400 units PO DAILY 05/16/17 11:08 Warfarin Pharmacy to Dose [Pharmacy to Dose - Warfarin] 0 dose PO ASDIRECTED PRN 05/16/17 11:15 Sodium Chloride 0.9% [Normal Saline] 1,000 ml IV ASDIRECTED 05/16/17 16:00 Communication Order [RC] ONETIME 05/16/17 17:51 Incentive Spirometry [RT Incentive Spirometry] [RC] ASDIRECTED 05/16/17 19:00 Levofloxacin/Dextrose 5%-Water [Levaquin in D5W 500 MG/100 ML] 500 mg Premix Bag 1 bag IV Q24H 05/16/17 21:00 Mometasone/Formoterol [Dulera 200-5 MCG] 2 puff IH BID guaiFENesin [Mucinex] 600 mg PO BID 05/17/17 05:11 ALBUMIN [CHEM] AM BASIC METABOLIC PANEL,BMP [CHEM] AM C-REACTIVE PROTEIN [CHEM] AM CBC WITH AUTO DIFF [HEME] AM INR,PT,PROTHROMBIN TIME [COAG] AM MAGNESIUM [CHEM] AM T4 FREE [CHEM] AM TSH [CHEM] AM 05/18/17 05:11 BASIC METABOLIC PANEL,BMP [CHEM] AM C-REACTIVE PROTEIN [CHEM] AM CBC WITH AUTO DIFF [HEME] AM INR,PT,PROTHROMBIN TIME [COAG] AM MAGNESIUM [CHEM] AM 05/19/17 05:11 BASIC METABOLIC PANEL,BMP [CHEM] AM C-REACTIVE PROTEIN [CHEM] AM CBC WITH AUTO DIFF [HEME] AM INR,PT,PROTHROMBIN TIME [COAG] AM MAGNESIUM [CHEM] AM 05/20/17 05:11 BASIC METABOLIC PANEL,BMP [CHEM] AM CBC WITH AUTO DIFF [HEME] AM INR,PT,PROTHROMBIN TIME [COAG] AM MAGNESIUM [CHEM] AM - Plan Plan:: Assessment/Plan: Acute: Catheter Related UTI Pos E. coli, Improving - CRP 17.9 ---> 15.3 - Risk Factors: Indwelling jeffery catheter, BPH and Hx/o Bladder CA - Also bed and wheel chair bound - Jeffery catheter was changed at the clinic today - He has a scheduled appointment to see Dr. Fernandez in [place] for cystoscopy - Switch IV Levaquin to oral dose daily - Awaiting UA Sx Small Bilateral Pleural Effusions w/ Atelectasis - Clinic CXR report - IS as directed - Follow Up CXR: B/L Pleural effusions R>L - CT scan today Cough/Bronchitis, Improved - CXR shows Small Bilateral Pleural Effusions w/ Atelectasis - Continue ATB - Mucinex 600 mg po BID - Serial CXR as needed Generalized Weakness, Slightly Improved - 2/2 above + baseline PD/Parkinsonian Syndrome - Continue PT/OT - Vit D level pending and Thyroid panel-normal Hypoalbuminemia - Albumin 2.9 --> 2.4 - Consult Dietary to increase protein intake Supratherapeutic INR - INR 3.13---> now 2.94 - Likely 2/2 Levaquin use - Pharmacy to dose warfarin - Daily INR check Resolved: S/p Sepsis w/o Hypotension - 2/2 UTI - UA pos for UTI (Large LE and Pos Nitrite) - WBC 14.6 and CRP 128.9 - Fever/chills and hypotensive at the clinic with a documented BP of 89/53 mmHg - Blood CX x2 pending - BPs now stable - Continue IVF at KVO rate - Continue Levaquin for empiric coverage Chronic: HTN SOB with Baseline Supplemental O2 Atrial Fibrillation, HR controlled on warfarin Parkinsonian Syndrome (Not Parkinson's Disease per family) Hx/o CVA Hx/o Bladder CA Plan: He remains clinically stable Routine AM Labs Continue PT/OT Fall Precautions SW/CM for d/c planning SNF/Rehab placement Friday Code status: DNR/DNI LOS anticipate > 96 hrs pending SNF/Rehab placement
[2017-05-17] MEDS: Carbidopa/Levodopa 25-100 MG Tab PO SCH ×3 (06:14→18:22)
[2017-05-17] MEDS: Vitamin E (dl-alpha-tocopherol acetate) 400 Unit Cap PO SCH (08:05)
[2017-05-17] MEDS: Saccharomyces Boulardii (Probiotic) 250 MG Cap PO SCH (08:05)
[2017-05-17] MEDS: Ascorbic Acid 500 MG Tab PO SCH (08:06)
[2017-05-17] MEDS: Potassium Chloride 10 MEQ Tab.ER PO SCH (08:06)
[2017-05-17] MEDS: guaiFENesin 600 MG Tab.ER PO SCH ×2 (08:06→21:09)
[2017-05-17] MEDS: Cholecalciferol (Vitamin D3) 1,000 Unit Tab PO SCH (08:06)
[2017-05-17] MEDS: Vitamin B Complex With Vitamin C Cap PO SCH (08:06)
[2017-05-17] MEDS: Tamsulosin 0.4 MG Cap.ER PO SCH (08:06)
[2017-05-17] MEDS: Furosemide 20 MG Tab PO SCH (08:06)
[2017-05-17] MEDS: Losartan 25 MG Tab PO SCH (08:07)
[2017-05-17] MEDS: LECITHIN PO SCH (08:08)
[2017-05-17] MEDS ORDERED: Magnesium Sulfate/Water 50 ML IV ONE (10:30)
[2017-05-17] MEDS: Formoterol/Mometasone 200-5 MCG 8.8 GM Inhaler IH SCH ×2 (10:32→20:24)
[2017-05-17] MEDS ORDERED: Warfarin 2.5 MG Tab PO ONE (18:00)
[2017-05-17] MEDS: Levofloxacin 500 MG Tab PO SCH (18:22)
[2017-05-17] MEDS: Sodium Chloride 0.9% 1,000 ML IV SCH (21:08)
[2017-05-18] MEDS: Carbidopa/Levodopa 25-100 MG Tab PO SCH ×3 (06:35→18:47)
--- NOTE | 2017-05-18 07:15 | PCM.PN ---
- General Info Date of Service: 05/18/17 Admission Dx/Problem (Free Text): Sepsis and UTI Subjective Update: Follow up Functional Status: Reports: Pain Controlled, Tolerating Diet, Urinating. Denies : New Symptoms - Review of Systems General: Denies: Fever, Weakness, Fatigue, Malaise, Chills HEENT: Reports: No Symptoms Pulmonary: Denies: Shortness of Breath, Cough Cardiovascular: Denies: Chest Pain Gastrointestinal: Denies: Abdominal Pain, Nausea, Vomiting Genitourinary: Reports: No Symptoms Musculoskeletal: Reports: No Symptoms Skin: Denies: Cyanosis Neurological: Reports: Difficulty Walking, Gait Disturbance. Denies: Confusion , Dizziness, Weakness Psychiatric: Denies: Depression, Anxiety, Agitation, Cravings, Hallucinations, Suicidal Ideation Systems Review Comment:: No overnight or acute issues. He complaints of dry mouth this morning but he breaths through his wide open mouth. He remains afebrile w/o leukocytosis. His CRP is now down to 9.6. He has no new complaints. - Patient Data Vitals - Most Recent: Last Vital Signs Temp 36.9 C 05/18/17 03:29 Pulse 60 05/18/17 03:29 Resp 15 05/18/17 03:29 BP 131/73 05/18/17 03:29 Pulse Ox 97 05/18/17 03:29 Weight - Most Recent: 69.808 kg I&O - Last 24 Hours: Intake & Output 05/17/17 05/18/17 05/18/17 22:59 06:59 14:59 Intake Total 1970 545 Output Total 1600 900 Balance 370 -355 Lab Results Last 24 Hours: Laboratory Results - last 24 hr 05/17/17 05/17/17 05/17/17 Range/Units 07:07 07:07 07:07 WBC 7.73 (4.23-9.07) K/mm3 RBC 3.41 L (4.63-6.08) M/mm3 Hgb 10.8 L (13.7-17.5) gm/L Hct 33.0 L (40.1-51.0) % MCV 96.8 H (79.0-92.2) fl MCH 31.7 (25.7-32.2) pg MCHC 32.7 (32.2-35.5) g/dl RDW Std Deviation 49.1 H (35.1-43.9) fL Plt Count 155 L (163-337) K/mm3 MPV 10.3 (9.4-12.3) fl Neut % (Auto) 78.7 H (34.0-67.9) % Lymph % (Auto) 10.6 L (21.8-53.1) % [place] % (Auto) 6.9 (5.3-12.2) % Eos % (Auto) 3.2 (0.8-7.0) Baso % (Auto) 0.3 (0.1-1.2) % Neut # (Auto) 6.09 H (1.78-5.38) K/mm3 Lymph # (Auto) 0.82 L (1.32-3.57) K/mm3 [place] # (Auto) 0.53 (0.30-0.82) K/mm3 Eos # (Auto) 0.25 (0.04-0.54) K/mm3 Baso # (Auto) 0.02 (0.01-0.08) K/mm3 PT 34.5 H (8.0-13.0) SECONDS INR 2.95 Sodium 137 (136-145) mEq/L Potassium 4.0 (3.5-5.1) mEq/L Chloride 103 (98-107) mEq/L Carbon Dioxide 31 (21-32) mEq/L Anion Gap 7.0 (5-15) BUN 24 H (7-18) mg/dL Creatinine 1.0 (0.7-1.3) mg/dL Est Cr Clr Drug Dosing 48.45 mL/min Estimated GFR (MDRD) > 60 (>60) mL/min BUN/Creatinine Ratio 24.0 H (14-18) Glucose 97 (83-115) mg/dL Calcium 8.4 L (8.5-10.1) mg/dL Magnesium 1.9 (1.8-2.4) mg/dl C-Reactive Protein 15.3 H* (<1.0) mg/dL Albumin 2.4 L (3.4-5.0) g/dl Free T4 1.22 (0.76-1.46) ng/dL TSH 3rd Generation 3.579 (0.358-3.74) uIU/mL 08/27/17 Range/Units 05:46 WBC 4.82 (4.23-9.07) K/mm3 RBC 3.23 L (4.63-6.08) M/mm3 Hgb 10.3 L (13.7-17.5) gm/L Hct 31.4 L (40.1-51.0) % MCV 97.2 H (79.0-92.2) fl MCH 31.9 (25.7-32.2) pg MCHC 32.8 (32.2-35.5) g/dl RDW Std Deviation 48.9 H (35.1-43.9) fL Plt Count 167 (163-337) K/mm3 MPV 10.9 (9.4-12.3) fl Neut % (Auto) 62.9 (34.0-67.9) % Lymph % (Auto) 19.7 L (21.8-53.1) % [place] % (Auto) 10.4 (5.3-12.2) % Eos % (Auto) 6.2 (0.8-7.0) Baso % (Auto) 0.4 (0.1-1.2) % Neut # (Auto) 3.03 (1.78-5.38) K/mm3 Lymph # (Auto) 0.95 L (1.32-3.57) K/mm3 [place] # (Auto) 0.50 (0.30-0.82) K/mm3 Eos # (Auto) 0.30 (0.04-0.54) K/mm3 Baso # (Auto) 0.02 (0.01-0.08) K/mm3 PT (8.0-13.0) SECONDS INR Sodium (136-145) mEq/L Potassium (3.5-5.1) mEq/L Chloride (98-107) mEq/L Carbon Dioxide (21-32) mEq/L Anion Gap (5-15) BUN (7-18) mg/dL Creatinine (0.7-1.3) mg/dL Est Cr Clr Drug Dosing mL/min Estimated GFR (MDRD) (>60) mL/min BUN/Creatinine Ratio (14-18) Glucose (83-115) mg/dL Calcium (8.5-10.1) mg/dL Magnesium (1.8-2.4) mg/dl C-Reactive Protein (<1.0) mg/dL Albumin (3.4-5.0) g/dl Free T4 (0.76-1.46) ng/dL TSH 3rd Generation (0.358-3.74) uIU/mL Andrew Results Last 24 Hours: Microbiology 05/15/17 18:20 Aerobic Blood Culture - Preliminary Blood - Venous - Lab Draw NO GROWTH AFTER 2 DAYS Anaerobic Blood Culture - Preliminary NO GROWTH AFTER 2 DAYS 05/15/17 18:05 Aerobic Blood Culture - Preliminary Blood - Venous NO GROWTH AFTER 2 DAYS Anaerobic Blood Culture - Preliminary NO GROWTH AFTER 2 DAYS 05/15/17 18:44 Urine Culture - Final Urine, Jeffery Cath (Indwelling) Escherichia Coli Med Orders - Current: Current Medications Acetaminophen (Tylenol) 650 mg PO Q4H PRN PRN Reason: Pain (Mild 1-3)/fever Hydrocodone Bitart/Acetaminophen ([place] 325-5 Mg) 1 tab PO Q4H PRN PRN Reason: Pain (moderate 4-6) Albuterol (Proventil Hfa) 0 gm INH Q6H PRN PRN Reason: Shortness of Breath Albuterol/Ipratropium (Duoneb 3.0-0.5 Mg/3 Ml) 3 ml NEB Q4H PRN PRN Reason: Shortness Of Breath/wheezing Ascorbic Acid (Vitamin C) 500 mg PO DAILY [facility] Last Admin: 05/17/17 08:06 Dose: 500 mg Bisacodyl (Dulcolax) 5 mg PO DAILY PRN PRN Reason: Constipation Carbidopa/Levodopa (Sinemet 25-100 Mg) 1 tab PO TIDAC [facility] Last Admin: 05/18/17 06:35 Dose: 1 tab Cholecalciferol (Vitamin D3) 500 units PO DAILY [facility] Last Admin: 05/17/17 08:06 Dose: 500 units Docusate Sodium (Colace) 100 mg PO BID PRN PRN Reason: Constipation Furosemide (Lasix) 20 mg PO DAILY [facility] Last Admin: 05/17/17 08:06 Dose: 20 mg Guaifenesin (Mucinex) 600 mg PO BID [facility] Last Admin: 05/17/17 21:09 Dose: 600 mg Hydralazine HCl (Apresoline) 10 mg IVPUSH Q4H PRN PRN Reason: Hypertension Hydromorphone HCl (Dilaudid) 0.25 mg IVPUSH Q4H PRN PRN Reason: Pain (severe 7-10) Promethazine HCl 12.5 mg/ (Sodium Chloride) 50.5 mls @ 100 mls/hr IV Q6H PRN PRN Reason: Nausea/Vomiting Sodium Chloride (Normal Saline) 1,000 mls @ 30 mls/hr IV ASDIRECTED [facility] Last Admin: 05/17/17 21:08 Dose: 30 mls/hr Levofloxacin (Levaquin) 500 mg PO Q24H [facility] Last Admin: 05/17/17 18:22 Dose: 500 mg Lorazepam (Ativan) 0.25 mg IV Q6H PRN PRN Reason: Anxiety Lorazepam (Ativan) 2 mg IVPUSH Q4H PRN PRN Reason: Seizures Losartan Potassium (Cozaar) 50 mg PO DAILY [facility] Last Admin: 05/17/17 08:07 Dose: 50 mg Magnesium Sulfate (Pharmacy To Dose - Magnesium Replacement) 0 dose .XX ASDIRECTED PRN PRN Reason: RX TO WATCH MAG LEVELS Metoprolol Tartrate (Lopressor) 5 mg IVPUSH Q4H PRN PRN Reason: Tachycardia Mometasone Furoate/Formoterol Fumar (Dulera 200-5 Mcg) 2 puff IH BID [facility] Last Admin: 05/17/17 20:24 Dose: 2 puff Nitroglycerin (Nitrostat) 0.4 mg SL ASDIRECTED PRN PRN Reason: Chest Pain Ondansetron HCl (Zofran) 4 mg IV Q6H PRN PRN Reason: Nausea/Vomiting Lecithin Tablets 0 each PO DAILY [facility] Last Admin: 05/17/17 08:08 Dose: Not Given Vitamin A 10,000 (Units) 0 each PO DAILY [facility] Last Admin: 05/17/17 08:08 Dose: Not Given Polyethylene Glycol (Miralax) 17 gm PO DAILY PRN PRN Reason: Constipation Potassium Chloride (Klor-Con 10) 5 meq PO DAILY [facility] Last Admin: 05/17/17 08:06 Dose: 5 meq Potassium Chloride (Pharmacy To Dose - Potassium Replacement) 0 dose .XX ASDIRECTED PRN PRN Reason: RX TO WATCH K LEVELS Saccharomyces Boulardii (Florastor) 250 mg PO DAILY [facility] Last Admin: 05/17/17 08:05 Dose: 250 mg Senna/Docusate Sodium (Senna Plus) 1 tab PO BID PRN PRN Reason: Constipation Tamsulosin HCl (Flomax) 0.4 mg PO DAILY [facility] Last Admin: 05/17/17 08:06 Dose: 0.4 mg Temazepam (Restoril) 7.5 mg PO BEDTIME PRN PRN Reason: Sleep Last Admin: 05/17/17 21:09 Dose: 7.5 mg Vitamin B Complex/Vitamin C (Super B With Vitamin C) 1 cap PO DAILY [facility] Last Admin: 05/17/17 08:06 Dose: 1 cap Vitamin E (Vitamin E) 400 units PO DAILY [facility] Last Admin: 05/17/17 08:05 Dose: 400 units Warfarin Sodium (Pharmacy To Dose - Warfarin) 0 dose PO ASDIRECTED PRN PRN Reason: RX TO DOSE Discontinued Medications Sodium Chloride (Normal Saline) 1,000 mls @ 125 mls/hr IV ASDIRECTED [facility] Last Infusion: 05/16/17 11:02 Dose: Infused Levofloxacin/Dextrose 750 mg/ (Premix) 150 mls @ 100 mls/hr IV ONETIME ONE Stop: 05/15/17 19:22 Last Admin: 05/15/17 18:54 Dose: 100 mls/hr Levofloxacin/Dextrose 500 mg/ (Premix) 100 mls @ 100 mls/hr IV Q24H [facility] Last Admin: 05/16/17 18:34 Dose: 100 mls/hr Magnesium Sulfate (Magnesium Sulfate 2 Gm In Water 50 Ml) 50 mls @ 50 mls/hr IV ONETIME ONE Stop: 05/17/17 11:29 Last Admin: 05/17/17 11:00 Dose: 50 mls/hr Mometasone Furoate/Formoterol Fumar (Dulera 200-5 Mcg) 2 puff IH BIDRT [facility] Last Admin: 05/16/17 08:16 Dose: 2 puff Saccharomyces Boulardii (Florastor) 250 mg PO ONETIME ONE Stop: 05/15/17 21:01 Last Admin: 05/15/17 20:10 Dose: 250 mg Warfarin Sodium (Coumadin) 2.5 mg PO WeFr@1800 [facility] Warfarin Sodium (Coumadin) 5 mg PO SuMoTuThSa@1800 [facility] Last Admin: 05/15/17 20:10 Dose: 5 mg Warfarin Sodium (Coumadin Sliding Scale) 0 each PO DAILY@1800 [facility] Stop: 05/16/17 21:00 Last Admin: 05/16/17 18:49 Dose: Not Given Warfarin Sodium (Pharmacy To Dose - Warfarin) 1 dose PO ASDIRECTED PRN PRN Reason: RX TO DOSE Warfarin Sodium (Coumadin) 2.5 mg PO ONETIME ONE Stop: 05/17/17 18:01 Last Admin: 05/17/17 18:21 Dose: 2.5 mg - Exam Quality Assessment: Supplemental Oxygen General: Alert, Cooperative, No Acute Distress HEENT: Pupils Equal, Pupils Reactive, EOMI, Mucous Membr. Moist/[place] Neck: Supple, Trachea Midline, No JVD Lungs: Normal Respiratory Effort, Decreased Breath Sounds, Rales Cardiovascular: Irregular Rhythm GI/Abdominal Exam: Normal Bowel Sounds, Soft, Non-Tender, No Organomegaly, No Distention, No Abnormal Bruit, No Mass (Male) Exam: Other (indwelling jeffery catheter) Back Exam: Normal Inspection, Decreased Range of Motion Extremities: Normal Inspection, Normal Range of Motion, Non-Tender, No Pedal Edema, Normal Capillary Refill Peripheral Pulses: 2+: Dorsalis Pedis (L), Dorsalis Pedis (R) Skin: Warm, Dry, Intact Neurological: No New Focal Deficit. No: Normal Gait Psy/Mental Status: Alert, Normal Mood. No: Normal Affect - Problem List Review Problem List Initiated/Reviewed/Updated: Yes - My Orders Last 24 Hours: My Active Orders 05/17/17 11:39 Chest wo Cont [CT] Routine 05/17/17 19:00 Levofloxacin [Levaquin] 500 mg PO Q24H 05/18/17 05:46 BASIC METABOLIC PANEL,BMP [CHEM] AM C-REACTIVE PROTEIN [CHEM] AM INR,PT,PROTHROMBIN TIME [COAG] AM MAGNESIUM [CHEM] AM 05/19/17 05:11 BASIC METABOLIC PANEL,BMP [CHEM] AM C-REACTIVE PROTEIN [CHEM] AM CBC WITH AUTO DIFF [HEME] AM INR,PT,PROTHROMBIN TIME [COAG] AM MAGNESIUM [CHEM] AM 05/20/17 05:11 BASIC METABOLIC PANEL,BMP [CHEM] AM CBC WITH AUTO DIFF [HEME] AM INR,PT,PROTHROMBIN TIME [COAG] AM MAGNESIUM [CHEM] AM - Plan Plan:: Assessment/Plan: Acute: Catheter Related UTI Pos E. coli, Improving - CRP 17.9 ---> 15.3 ---> 9.6 - Risk Factors: Indwelling jeffery catheter, BPH and Hx/o Bladder CA - Also bed and wheel chair bound - Jeffery catheter was changed at the clinic today - He has a scheduled appointment to see Dr. Fernandez in [place] for cystoscopy - Continue oral Levaquin daily Bilateral Pleural Effusions w/ Atelectasis - Clinic CXR report - IS as directed - Follow Up CXR: B/L Pleural effusions R>L - CT scan: shows right sided moderate size pleural effusion - Patient and family refused invasive procedure at this point Cough/Bronchitis, Improved - CXR shows Small Bilateral Pleural Effusions w/ Atelectasis - Continue ATB - Mucinex 600 mg po BID - Serial CXR as needed Generalized Weakness, Slightly Improved - 2/2 above + baseline PD/Parkinsonian Syndrome - Continue PT/OT - Vit D level pending and Thyroid panel-normal Hypoalbuminemia - Albumin 2.9 --> 2.4 - Consult Dietary to increase protein intake Resolved: S/p Sepsis w/o Hypotension - 2/2 UTI - UA pos for UTI (Large LE and Pos Nitrite) - WBC 14.6 and CRP 128.9 - Fever/chills and hypotensive at the clinic with a documented BP of 89/53 mmHg - Blood CX x2 pending - BPs now stable - Continue IVF at KVO rate - Continue Levaquin for empiric coverage Supratherapeutic INR - INR 3.13---> 2.94 ---> 2.66 - Likely 2/2 Levaquin use - Pharmacy to dose warfarin - Daily INR check Chronic: HTN SOB with Baseline Supplemental O2 Atrial Fibrillation, HR controlled on warfarin Parkinsonian Syndrome (Not Parkinson's Disease per family) Hx/o CVA Hx/o Bladder CA Plan: He remains clinically stable Routine AM Labs Continue PT/OT Fall Precautions SW/CM for d/c planning SNF/Rehab placement Friday Code status: DNR/DNI LOS anticipate > 96 hrs pending SNF/Rehab placement
[2017-05-18] MEDS: Vitamin E (dl-alpha-tocopherol acetate) 400 Unit Cap PO SCH (09:19)
[2017-05-18] MEDS: Potassium Chloride 10 MEQ Tab.ER PO SCH (09:19)
[2017-05-18] MEDS: guaiFENesin 600 MG Tab.ER PO SCH ×2 (09:19→21:41)
[2017-05-18] MEDS: Vitamin B Complex With Vitamin C Cap PO SCH (09:19)
[2017-05-18] MEDS: Saccharomyces Boulardii (Probiotic) 250 MG Cap PO SCH (09:19)
[2017-05-18] MEDS: Furosemide 20 MG Tab PO SCH (09:20)
[2017-05-18] MEDS: Losartan 25 MG Tab PO SCH (09:20)
[2017-05-18] MEDS: Cholecalciferol (Vitamin D3) 1,000 Unit Tab PO SCH (09:20)
[2017-05-18] MEDS: Ascorbic Acid 500 MG Tab PO SCH (09:20)
[2017-05-18] MEDS: Tamsulosin 0.4 MG Cap.ER PO SCH (09:20)
[2017-05-18] MEDS: LECITHIN PO SCH (09:21)
[2017-05-18] MEDS: Formoterol/Mometasone 200-5 MCG 8.8 GM Inhaler IH SCH ×2 (09:39→20:20)
[2017-05-18] MEDS ORDERED: Warfarin 5 MG Tab PO ONE (18:00)
--- NOTE | 2017-05-18 18:24 | CT ---
CT chest Technique: Multiple axial sections were obtained from above the lung apices inferiorly through the lung bases. Intravenous contrast was not utilized. Comparison: Previous chest x-ray of 05/16/17. Findings: Small to moderate sized right sided pleural effusion is seen. Minimal left sided pleural effusion is noted. Increased density is seen adjacent to the pleural effusions which is felt compatible with atelectasis. Lungs otherwise are clear. Atherosclerotic calcification is seen within a nondilated thoracic aorta. Extensive coronary artery calcification is seen as well as cardiomegaly. Cyst is identified within the right kidney. Bony structures are osteopenic. Mild degenerative change is seen within the spine. Impression: 1. Small to moderate sized right sided pleural effusion and minimal left sided pleural effusion. 2. Atelectasis within both lung bases. 3. Other incidental findings as noted above. Diagnostic code #3 Agree with preliminary report issued by [facility] ([facility] preliminary report dictated on 05/17/17, 6:11 PM Central Time)
[2017-05-18] MEDS: Levofloxacin 500 MG Tab PO SCH (18:47)
[2017-05-18] MEDS: Sodium Chloride 0.9% 1,000 ML IV SCH (21:39)
[2017-05-19] MEDS: Carbidopa/Levodopa 25-100 MG Tab PO SCH ×3 (06:32→17:50)
[2017-05-19] MEDS: Albuterol/Ipratropium 3.0-0.5 MG/3 ML Neb Soln NEB PRN (06:46)
[2017-05-19] MEDS: Vitamin B Complex With Vitamin C Cap PO SCH (08:32)
[2017-05-19] MEDS: Ascorbic Acid 500 MG Tab PO SCH (08:32)
[2017-05-19] MEDS: Vitamin E (dl-alpha-tocopherol acetate) 400 Unit Cap PO SCH (08:32)
[2017-05-19] MEDS: Saccharomyces Boulardii (Probiotic) 250 MG Cap PO SCH (08:32)
[2017-05-19] MEDS: Potassium Chloride 10 MEQ Tab.ER PO SCH (08:33)
[2017-05-19] MEDS: Cholecalciferol (Vitamin D3) 1,000 Unit Tab PO SCH (08:33)
[2017-05-19] MEDS: Tamsulosin 0.4 MG Cap.ER PO SCH (08:33)
[2017-05-19] MEDS: guaiFENesin 600 MG Tab.ER PO SCH ×2 (08:34→21:16)
[2017-05-19] MEDS: Furosemide 20 MG Tab PO SCH (08:34)
[2017-05-19] MEDS: Losartan 25 MG Tab PO SCH (08:34)
[2017-05-19] MEDS: LECITHIN PO SCH (08:34)
[2017-05-19] MEDS: Formoterol/Mometasone 200-5 MCG 8.8 GM Inhaler IH SCH ×2 (09:20→20:18)
--- NOTE | 2017-05-19 13:51 | PCM.PN ---
- General Info Date of Service: 05/19/17 Admission Dx/Problem (Free Text): Sepsis and UTI Jaret is seen this morning, doing well. No complaints or concerns. Denies pain, no abd pain, back pain, n/v/d, f/c/s. Good appetite. Jeffery cath in place draining clear yellow urine. Functional Status: Reports: Pain Controlled, Tolerating Diet, Ambulating, Urinating (jeffery). Denies: New Symptoms - Review of Systems General: Reports: Weakness (present but slowly improving) HEENT: Reports: No Symptoms Pulmonary: Reports: Cough (improving) Cardiovascular: Reports: No Symptoms Gastrointestinal: Reports: No Symptoms Genitourinary: Reports: Retention (jeffery cath in place and draining) Neurological: Reports: No Symptoms Psychiatric: Reports: No Symptoms - Patient Data Vitals - Most Recent: Last Vital Signs Temp 98.1 F 05/19/17 12:03 Pulse 56 L 05/19/17 12:03 Resp 22 H 05/19/17 12:03 BP 127/69 05/19/17 12:03 Pulse Ox 96 05/19/17 12:03 Weight - Most Recent: 154 lb 14.4 oz I&O - Last 24 Hours: Intake & Output 05/18/17 05/19/17 05/19/17 22:59 06:59 14:59 Intake Total 803 622 340 Output Total 900 1200 Balance -97 -578 340 Lab Results Last 24 Hours: Laboratory Results - last 24 hr 05/19/17 05/19/17 05/19/17 Range/Units 05:35 05:35 05:35 WBC 5.01 (4.23-9.07) K/mm3 RBC 3.32 L (4.63-6.08) M/mm3 Hgb 10.7 L (13.7-17.5) gm/L Hct 32.6 L (40.1-51.0) % MCV 98.2 H (79.0-92.2) fl MCH 32.2 (25.7-32.2) pg MCHC 32.8 (32.2-35.5) g/dl RDW Std Deviation 49.8 H (35.1-43.9) fL Plt Count 179 (163-337) K/mm3 MPV 10.4 (9.4-12.3) fl Neut % (Auto) 56.4 (34.0-67.9) % Lymph % (Auto) 23.6 (21.8-53.1) % [place] % (Auto) 11.4 (5.3-12.2) % Eos % (Auto) 7.6 H (0.8-7.0) Baso % (Auto) 0.8 (0.1-1.2) % Neut # (Auto) 2.83 (1.78-5.38) K/mm3 Lymph # (Auto) 1.18 L (1.32-3.57) K/mm3 [place] # (Auto) 0.57 (0.30-0.82) K/mm3 Eos # (Auto) 0.38 (0.04-0.54) K/mm3 Baso # (Auto) 0.04 (0.01-0.08) K/mm3 PT 24.0 H (8.0-13.0) SECONDS INR 2.10 Sodium 146 H (136-145) mEq/L Potassium 4.3 (3.5-5.1) mEq/L Chloride 110 H (98-107) mEq/L Carbon Dioxide 30 (21-32) mEq/L Anion Gap 10.3 (5-15) BUN 17 (7-18) mg/dL Creatinine 0.9 (0.7-1.3) mg/dL Est Cr Clr Drug Dosing 53.83 mL/min Estimated GFR (MDRD) > 60 (>60) mL/min BUN/Creatinine Ratio 18.9 H (14-18) Glucose 89 (83-115) mg/dL Calcium 8.3 L (8.5-10.1) mg/dL Magnesium 2.0 (1.8-2.4) mg/dl C-Reactive Protein 6.0 H* (<1.0) mg/dL Andrew Results Last 24 Hours: Microbiology 05/15/17 18:20 Aerobic Blood Culture - Preliminary Blood - Venous - Lab Draw NO GROWTH AFTER 3 DAYS Anaerobic Blood Culture - Preliminary NO GROWTH AFTER 3 DAYS 05/15/17 18:05 Aerobic Blood Culture - Preliminary Blood - Venous NO GROWTH AFTER 3 DAYS Anaerobic Blood Culture - Preliminary NO GROWTH AFTER 3 DAYS Med Orders - Current: Current Medications Acetaminophen (Tylenol) 650 mg PO Q4H PRN PRN Reason: Pain (Mild 1-3)/fever Hydrocodone Bitart/Acetaminophen ([place] 325-5 Mg) 1 tab PO Q4H PRN PRN Reason: Pain (moderate 4-6) Albuterol (Proventil Hfa) 0 gm INH Q6H PRN PRN Reason: Shortness of Breath Albuterol/Ipratropium (Duoneb 3.0-0.5 Mg/3 Ml) 3 ml NEB Q4H PRN PRN Reason: Shortness Of Breath/wheezing Last Admin: 05/19/17 06:46 Dose: 3 ml Ascorbic Acid (Vitamin C) 500 mg PO DAILY [facility] Last Admin: 05/19/17 08:32 Dose: 500 mg Bisacodyl (Dulcolax) 5 mg PO DAILY PRN PRN Reason: Constipation Carbidopa/Levodopa (Sinemet 25-100 Mg) 1 tab PO TIDAC [facility] Last Admin: 05/19/17 10:22 Dose: 1 tab Cholecalciferol (Vitamin D3) 500 units PO DAILY [facility] Last Admin: 05/19/17 08:33 Dose: 500 units Docusate Sodium (Colace) 100 mg PO BID PRN PRN Reason: Constipation Furosemide (Lasix) 20 mg PO DAILY [facility] Last Admin: 05/19/17 08:34 Dose: 20 mg Guaifenesin (Mucinex) 600 mg PO BID [facility] Last Admin: 05/19/17 08:34 Dose: 600 mg Hydralazine HCl (Apresoline) 10 mg IVPUSH Q4H PRN PRN Reason: Hypertension Hydromorphone HCl (Dilaudid) 0.25 mg IVPUSH Q4H PRN PRN Reason: Pain (severe 7-10) Promethazine HCl 12.5 mg/ (Sodium Chloride) 50.5 mls @ 100 mls/hr IV Q6H PRN PRN Reason: Nausea/Vomiting Sodium Chloride (Normal Saline) 1,000 mls @ 30 mls/hr IV ASDIRECTED [facility] Last Admin: 05/18/17 21:39 Dose: 30 mls/hr Levofloxacin (Levaquin) 500 mg PO Q24H [facility] Last Admin: 05/18/17 18:47 Dose: 500 mg Lorazepam (Ativan) 0.25 mg IV Q6H PRN PRN Reason: Anxiety Lorazepam (Ativan) 2 mg IVPUSH Q4H PRN PRN Reason: Seizures Losartan Potassium (Cozaar) 50 mg PO DAILY [facility] Last Admin: 05/19/17 08:34 Dose: 50 mg Magnesium Sulfate (Pharmacy To Dose - Magnesium Replacement) 0 dose .XX ASDIRECTED PRN PRN Reason: RX TO WATCH MAG LEVELS Metoprolol Tartrate (Lopressor) 5 mg IVPUSH Q4H PRN PRN Reason: Tachycardia Mometasone Furoate/Formoterol Fumar (Dulera 200-5 Mcg) 2 puff IH BID [facility] Last Admin: 05/19/17 09:20 Dose: 2 puff Nitroglycerin (Nitrostat) 0.4 mg SL ASDIRECTED PRN PRN Reason: Chest Pain Ondansetron HCl (Zofran) 4 mg IV Q6H PRN PRN Reason: Nausea/Vomiting Lecithin Tablets 0 each PO DAILY [facility] Last Admin: 05/19/17 08:34 Dose: Not Given Vitamin A 10,000 (Units) 0 each PO DAILY [facility] Last Admin: 05/19/17 08:35 Dose: Not Given Polyethylene Glycol (Miralax) 17 gm PO DAILY PRN PRN Reason: Constipation Potassium Chloride (Klor-Con 10) 5 meq PO DAILY [facility] Last Admin: 05/19/17 08:33 Dose: 5 meq Potassium Chloride (Pharmacy To Dose - Potassium Replacement) 0 dose .XX ASDIRECTED PRN PRN Reason: RX TO WATCH K LEVELS Saccharomyces Boulardii (Florastor) 250 mg PO DAILY [facility] Last Admin: 05/19/17 08:32 Dose: 250 mg Senna/Docusate Sodium (Senna Plus) 1 tab PO BID PRN PRN Reason: Constipation Tamsulosin HCl (Flomax) 0.4 mg PO DAILY [facility] Last Admin: 05/19/17 08:33 Dose: 0.4 mg Temazepam (Restoril) 7.5 mg PO BEDTIME PRN PRN Reason: Sleep Last Admin: 05/17/17 21:09 Dose: 7.5 mg Vitamin B Complex/Vitamin C (Super B With Vitamin C) 1 cap PO DAILY [facility] Last Admin: 05/19/17 08:32 Dose: 1 cap Vitamin E (Vitamin E) 400 units PO DAILY [facility] Last Admin: 05/19/17 08:32 Dose: 400 units Warfarin Sodium (Pharmacy To Dose - Warfarin) 0 dose PO ASDIRECTED PRN PRN Reason: RX TO DOSE Warfarin Sodium (Coumadin) 5 mg PO ONETIME ONE Stop: 05/19/17 18:01 Discontinued Medications Sodium Chloride (Normal Saline) 1,000 mls @ 125 mls/hr IV ASDIRECTED [facility] Last Infusion: 05/16/17 11:02 Dose: Infused Levofloxacin/Dextrose 750 mg/ (Premix) 150 mls @ 100 mls/hr IV ONETIME ONE Stop: 05/15/17 19:22 Last Admin: 05/15/17 18:54 Dose: 100 mls/hr Levofloxacin/Dextrose 500 mg/ (Premix) 100 mls @ 100 mls/hr IV Q24H [facility] Last Admin: 05/16/17 18:34 Dose: 100 mls/hr Magnesium Sulfate (Magnesium Sulfate 2 Gm In Water 50 Ml) 50 mls @ 50 mls/hr IV ONETIME ONE Stop: 05/17/17 11:29 Last Admin: 05/17/17 11:00 Dose: 50 mls/hr Mometasone Furoate/Formoterol Fumar (Dulera 200-5 Mcg) 2 puff IH BIDRT [facility] Last Admin: 05/16/17 08:16 Dose: 2 puff Saccharomyces Boulardii (Florastor) 250 mg PO ONETIME ONE Stop: 05/15/17 21:01 Last Admin: 05/15/17 20:10 Dose: 250 mg Warfarin Sodium (Coumadin) 2.5 mg PO WeFr@1800 [facility] Warfarin Sodium (Coumadin) 5 mg PO SuMoTuThSa@1800 [facility] Last Admin: 05/15/17 20:10 Dose: 5 mg Warfarin Sodium (Coumadin Sliding Scale) 0 each PO DAILY@1800 [facility] Stop: 05/16/17 21:00 Last Admin: 05/16/17 18:49 Dose: Not Given Warfarin Sodium (Pharmacy To Dose - Warfarin) 1 dose PO ASDIRECTED PRN PRN Reason: RX TO DOSE Warfarin Sodium (Coumadin) 2.5 mg PO ONETIME ONE Stop: 05/17/17 18:01 Last Admin: 05/17/17 18:21 Dose: 2.5 mg Warfarin Sodium (Coumadin) 5 mg PO ONETIME ONE Stop: 05/18/17 18:01 Last Admin: 05/18/17 18:47 Dose: 5 mg - Exam Quality Assessment: Urine Catheter, DVT Prophylaxis General: Alert, Oriented, No Acute Distress, Other ([place]) HEENT: Pupils Equal, EOMI, Mucous Membr. Moist/[place] Neck: Supple Lungs: Clear to Auscultation, Normal Respiratory Effort, Decreased Breath Sounds (bases) Cardiovascular: Irregular Rhythm GI/Abdominal Exam: Normal Bowel Sounds, Soft, Non-Tender (Male) Exam: Deferred Back Exam: Normal Inspection Extremities: No Pedal Edema, Normal Capillary Refill, Other (venous insufficiency changes to anterior tibia bilat) Peripheral Pulses: 1+: Dorsalis Pedis (L), Dorsalis Pedis (R) Neurological: No New Focal Deficit Psy/Mental Status: Alert, Normal Affect, Normal Mood - Problem List & Annotations (1) UTI (urinary tract infection) SNOMED Code(s): 70592828 Code(s): N39.0 - URINARY TRACT INFECTION, SITE NOT SPECIFIED Status: Acute Priority: High Current Visit: Yes Qualifiers: Urinary tract infection type: acute cystitis (2) Pneumonia SNOMED Code(s): 860696811 Code(s): J18.9 - PNEUMONIA, UNSPECIFIED ORGANISM Status: Acute Priority: High Current Visit: Yes (3) Subtherapeutic international normalized ratio (INR) SNOMED Code(s): 749795992 Code(s): R79.1 - ABNORMAL COAGULATION PROFILE Status: Resolved Priority: High Current Visit: Yes (4) Urinary retention due to benign prostatic hyperplasia SNOMED Code(s): 578016988 Code(s): N40.1 - BENIGN PROSTATIC HYPERPLASIA WITH LOWER URINARY TRACT SYMP; R33.8 - OTHER RETENTION OF URINE Status: Chronic Priority: High Current Visit: Yes (5) Atrial fibrillation SNOMED Code(s): 56800128 Code(s): I48.91 - UNSPECIFIED ATRIAL FIBRILLATION Status: Chronic Priority: Medium Current Visit: Yes Qualifiers: Atrial fibrillation type: chronic Qualified Code(s): I48.2 - Chronic atrial fibrillation (6) Parkinsons disease SNOMED Code(s): 28224717 Code(s): G20 - PARKINSON'S DISEASE Status: Chronic Priority: Medium Current Visit: No - Problem List Review Problem List Initiated/Reviewed/Updated: Yes - My Orders Last 24 Hours: My Active Orders 05/19/17 13:45 Furosemide [Lasix] 40 mg PO DAILY - Plan Plan:: Assessment/Plan: Acute: Catheter Related UTI Pos E. coli, Improving --pansensitive - Risk Factors: Indwelling jeffery catheter, BPH and Hx/o Bladder CA, bed and wheel chair bound - Jeffery catheter was changed at the clinic on day of admssion - He has a scheduled appointment to see Dr. Fernandez in [place] for cystoscopy and followup - Continue oral Levaquin daily Bilateral Pleural Effusions w/ Atelectasis - Clinic CXR report - IS as directed, supplemental O2 PRN - Follow Up CXR: B/L Pleural effusions R>L - CT scan: shows right sided moderate size pleural effusion - Patient and family refused invasive procedure at this point Cough/Bronchitis, Improved - CXR shows Small Bilateral Pleural Effusions w/ Atelectasis - Continue ATB - Mucinex 600 mg po BID - Serial CXR as needed Generalized Weakness, Slightly Improved - 2/2 above + baseline PD/Parkinsonian Syndrome - Continue PT/OT - Vit D level pending and Thyroid panel-normal Hypoalbuminemia - Albumin 2.9 --> 2.4 - Consult Dietary to increase protein intake Resolved: S/p Sepsis w/o Hypotension - 2/2 UTI - UA pos for UTI (Large LE and Pos Nitrite) - WBC 14.6 and CRP 128.9 - Fever/chills and hypotensive at the clinic with a documented BP of 89/53 mmHg - Blood CX x2 pending - BPs now stable - Continue IVF at KVO rate - Continue Levaquin for empiric coverage Supratherapeutic INR - INR 3.13---> 2.94 ---> 2.66 - Likely 2/2 Levaquin use - Pharmacy to dose warfarin - Daily INR check Chronic: HTN--controlled SOB with Baseline Supplemental O2--wears oxygen at night at 2L/NC Atrial Fibrillation, HR controlled on warfarin Parkinsonian Syndrome (Not Parkinson's Disease per family) Hx/o CVA Hx/o Bladder CA Plan: He remains clinically stable Routine AM Labs Continue PT/OT Fall Precautions SW/CM for d/c planning SNF/Rehab placement Code status: DNR/DNI LOS anticipate > 96 hrs pending SNF/Rehab placement--- completing paperwork process; likely dc to [facility] in next 24-48 hours; is medically stable for DC to SNF.
[2017-05-19] MEDS ORDERED: Furosemide 20 MG Tab PO SCH (14:00)
[2017-05-19] MEDS ORDERED: Warfarin 5 MG Tab PO ONE (18:00)
[2017-05-19] MEDS: Levofloxacin 500 MG Tab PO SCH (18:02)
[2017-05-19] MEDS: Sodium Chloride 0.9% 1,000 ML IV SCH (21:16)
[2017-05-20] MEDS ORDERED: Furosemide 40 MG Tab PO SCH (06:00)
[2017-05-20] MEDS: Carbidopa/Levodopa 25-100 MG Tab PO SCH ×2 (06:01→10:07)
[2017-05-20] MEDS: Albuterol/Ipratropium 3.0-0.5 MG/3 ML Neb Soln NEB PRN (06:15)
[2017-05-20] MEDS: Formoterol/Mometasone 200-5 MCG 8.8 GM Inhaler IH SCH (08:14)
[2017-05-20 08:30] VITALS: BP 116/71
[2017-05-20] MEDS: Losartan 25 MG Tab PO SCH (09:37)
[2017-05-20] MEDS: Potassium Chloride 10 MEQ Tab.ER PO SCH (09:39)
[2017-05-20] MEDS: Saccharomyces Boulardii (Probiotic) 250 MG Cap PO SCH (09:39)
[2017-05-20] MEDS: Tamsulosin 0.4 MG Cap.ER PO SCH (09:39)
[2017-05-20] MEDS: guaiFENesin 600 MG Tab.ER PO SCH (09:40)
[2017-05-20] MEDS: LECITHIN PO SCH (09:41)
[2017-05-20] MEDS: Ascorbic Acid 500 MG Tab PO SCH (09:42)
[2017-05-20] MEDS: Vitamin B Complex With Vitamin C Cap PO SCH (09:42)
[2017-05-20] MEDS: Cholecalciferol (Vitamin D3) 1,000 Unit Tab PO SCH (09:43)
[2017-05-20] MEDS: Vitamin E (dl-alpha-tocopherol acetate) 400 Unit Cap PO SCH (09:44)
--- NOTE | 2017-05-20 09:49 | PCM.DCSUM1 ---
Discharge Summary - Hospital Course Free Text/Narrative:: This is an 89-year-old elderly white male with past medical history of parkinsonian syndrome, chronic atrial fibrillation on warfarin, and history of CVA who was initially seen at his primary care provider's clinic for evaluation of generalized weakness. His symptom is associated with chills, cough, fatigue, subjective fever, and urinary symptoms. His symptom started yesterday and has progressively getting worse. His baseline functional status is mostly bed and wheelchair-bound. Patient carries a history of BPH and history of bladder cancer. He has a scheduled to see his urologist for planned cystoscopy. Patient has an indwelling Jeffery catheter for 6 weeks now. His Jeffery catheter was changed at the clinic prior to coming to us for direct admission. His initial vitals at the clinic shows the following: blood pressure of 89/53 millimeters per mercury, heart rate of 69 bpm, temperature of 99.7F, and O2 sat of 91% on room air. His initial workup at the clinic shows a CBC remarkable for WBC of 14.6, RBC of 3.65, hemoglobin of 11.7, hematocrit 35.7, and platelet of 137. His chemistry is remarkable for glucose of 105, albumin of 2.9, alkaline phosphatase of 151, and total bilirubin 1.4. CRP is 17.9. His chest x-ray report reads small bilateral pleural effusions with associated atelectasis. Cardiomegaly. Tortuous aorta. Normal vasculature. Upper chest is clear. Rotator cuff disease suspected right shoulder. His UA showed positive for leukocyte esterase protein and nitrite. Hospitalist service was consulted for direct admit for medical management of sepsis secondary to urinary tract infection from indwelling Jeffery catheter. He is DNR/DNI. Patient is admitted to MST unit, hydrated started on IV abx. UC was positive for ecoli which was pansensitive. He was maintained on IV levaquin, transitioned to PO levaquin. He did well with this. Jeffery catheter was changed in clinic on day of admission. Labs continued to improve, WBC and CRP were dramatically improved, he was afebrile during his stay with [facility] after fluid rehydration- b/p, hypotension resolved. He did have mild bronchitis, was treated with nebs and mucinex with good relief/improvement of cough. He maintained on usual home O2 at 2L at night. He worked with PT/OT who recommended rehab stay. 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 He will be dc'd to [facility] today for rehab stay. He is discharged on PO levaquin x [address] Fernandez has been scheduled for Urology f/up. He is to f/up with his PCP, Dr. Hull within one week of discharge. - Discharge Data Discharge Date: 05/20/17 (admit date 05/15/17) Discharge Disposition: DC/Tfer to SNF 03 Condition: Good - Discharge Diagnosis/Problem(s) (1) UTI (urinary tract infection) SNOMED Code(s): 39685302 ICD Code: N39.0 - URINARY TRACT INFECTION, SITE NOT SPECIFIED Status: Acute Priority: High Current Visit: Yes Qualifiers: Urinary tract infection type: acute cystitis (2) Pneumonia SNOMED Code(s): 833415464 ICD Code: J18.9 - PNEUMONIA, UNSPECIFIED ORGANISM Status: Acute Priority : High Current Visit: Yes (3) Subtherapeutic international normalized ratio (INR) SNOMED Code(s): 601096517 ICD Code: R79.1 - ABNORMAL COAGULATION PROFILE Status: Resolved Priority : High Current Visit: Yes (4) Urinary retention due to benign prostatic hyperplasia SNOMED Code(s): 343757198 ICD Code: N40.1 - BENIGN PROSTATIC HYPERPLASIA WITH LOWER URINARY TRACT SYMP ; R33.8 - OTHER RETENTION OF URINE Status: Chronic Priority: High Current Visit: Yes (5) Atrial fibrillation SNOMED Code(s): 73636949 ICD Code: I48.91 - UNSPECIFIED ATRIAL FIBRILLATION Status: Chronic Priority: Medium Current Visit: Yes Qualifiers: Atrial fibrillation type: chronic Qualified Code(s): I48.2 - Chronic atrial fibrillation (6) Parkinsons disease SNOMED Code(s): 27055773 ICD Code: G20 - PARKINSON'S DISEASE Status: Chronic Priority: Medium Current Visit: No - Patient Summary/Data Operative Procedure(s) Performed: None Complications: None Consults: Consultations 05/15/17 17:48 Consult to Case Management [CONS] Routine Consult to Torch Straightener [CONS] Routine Consult to Spiritual Care [CONS] Routine OT Evaluation and Treatment [CONS] Routine PT Evaluation and Treatment [CONS] Routine Labs Pending at D/C: None Recommended Follow-up Testing/Procedures: 02 2L NC while sleeping or as needed during the day Physical and occupational therapy to evaluate and treat. Follow up with PCP, Dr. Hull within one week of discharge Follow up with Urology as scheduled Jeffery catheter cares, am and pm and as needed Planned Operative Procedure(s) after DC: None Hospital Course: As above - Patient Instructions Diet: Usual Diet as Tolerated Activity: As Tolerated (PT/OT to continue at [facility]) Driving: Do Not Drive Showering/Bathing: May Shower Notify Provider of: Fever, Increased Pain, Swelling and Redness, Nausea and/or Vomiting - Discharge Plan Prescriptions/Med Rec: Albuterol/Ipratropium [DuoNeb 3.0-0.5 MG/3 ML] 3 ml NEB Q4H PRN #1 box PRN Reason: wheezing/SOB guaiFENesin [Mucinex] 600 mg PO BID #60 tab.er Levofloxacin [Levaquin] 500 mg PO Q24H #7 tablet Home Medications: Home Meds Albuterol [Ventolin HFA] 2 puff INH Q6H PRN 02/02/15 [History] Ascorbate Calcium [Vitamin C] 500 mg PO DAILY 02/02/15 [History] Carbidopa/Levodopa [Carbidopa-Levodopa 25-100] 1 tab PO TID 02/02/15 [History] Ergocalciferol (Vitamin D2) [Vitamin D] 400 units PO DAILY 02/02/15 [History] Fluticasone/Salmeterol [Advair Diskus 250-50] 1 puff INH BID 02/02/15 [History] Furosemide 40 mg PO DAILY 02/02/15 [History] Lecithin 1 tab PO DAILY 02/02/15 [History] Tamsulosin [Flomax] 0.4 mg PO DAILY 02/02/15 [History] Vitamin A 10,000 units PO DAILY 02/02/15 [History] Vitamin B Complex 100 mg PO DAILY 02/02/15 [History] Vitamin E 400 unit PO DAILY 02/02/15 [History] Warfarin [Coumadin] 2.5 mg PO WEFR 02/02/15 [History] Warfarin [Coumadin] 5 mg PO SUMOTUTHSA 02/02/15 [History] Furosemide 20 mg PO DAILY 05/15/17 [History] Losartan [Cozaar] 50 mg PO DAILY 05/15/17 [History] Nitroglycerin [Nitrostat] 0.4 mg SL ASDIRECTED PRN 05/15/17 [History] Potassium Chloride [Klor-Con 10] 5 meq PO DAILY 05/15/17 [History] Albuterol/Ipratropium [DuoNeb 3.0-0.5 MG/3 ML] 3 ml NEB Q4H PRN #1 box 05/20/17 [Rx] Bisacodyl [Dulcolax] 5 mg PO DAILY PRN tablet 05/20/17 [Rx] Docusate Sodium/Sennosides [Senna Plus] 1 tab PO BID PRN tablet 05/20/17 [Rx] Levofloxacin [Levaquin] 500 mg PO Q24H #7 tablet 05/20/17 [Rx] guaiFENesin [Mucinex] 600 mg PO BID #60 tab.er 05/20/17 [Rx] Patient Handouts: Jeffery Catheter Care, Adult, Urinary Tract Infection, Adult, [id number], Acute Bronchitis, [id number], Urosepsis, Acute Urinary Retention , Male Referrals: Ramon Fernandez MD [Ordering Only Provider] - 06/03/17 10:30 am (Follow- up appointment with urology.) Christ Hull MD [Primary Care Provider] - (Dr Hull's nurse will call either [facility] child support case officer phone or will call the pt to schedule an appt for early next week. They will continue to call the pt until an appt is scheduled per their report.) - Discharge Summary/Plan Comment DC Time >30 min.: Yes (40 min) - General Info Date of Service: 05/20/17 Admission Dx/Problem (Free Text: Sepsis and UTI Jaret is seen this morning, doing well. No complaints or concerns. Denies pain, no abd pain, back pain, n/v/d, f/c/s. Good appetite. Jeffery cath in place draining clear yellow urine. Plans for DC to [facility] today for rehab stay. Functional Status: Reports: Pain Controlled, Tolerating Diet, Ambulating (with assist), Urinating (jeffery cath draining clear yellow urine). Denies: New Symptoms - Review of Systems General: Reports: No Symptoms, Weakness (generalized, improving) HEENT: Reports: No Symptoms Pulmonary: Reports: Cough (hacky, somewhat productive on occasion; helped by rosario elizabeth). Denies: Shortness of Breath, Pleuritic Chest Pain, Hemoptysis, Wheezing Cardiovascular: Reports: No Symptoms. Denies: Chest Pain, Palpitations, Dyspnea on Exertion, Orthopnea Gastrointestinal: Reports: No Symptoms. Denies: Abdominal Pain, Diarrhea, Nausea, Vomiting Genitourinary: Reports: No Symptoms, Other (jeffery) Musculoskeletal: Reports: No Symptoms Skin: Reports: No Symptoms Neurological: Reports: No Symptoms Psychiatric: Reports: No Symptoms - Patient Data Vitals - Most Recent: Last Vital Signs Temp 98.6 F 05/20/17 07:21 Pulse 66 05/20/17 07:21 Resp 16 05/20/17 07:21 BP 116/71 05/20/17 07:21 Pulse Ox 92 L 05/20/17 08:15 Weight - Most Recent: 156 lb I&O - Last 24 hours: Intake & Output 05/19/17 05/20/17 05/20/17 22:59 06:59 14:59 Intake Total 1230 819 Output Total 1300 1850 Balance -70 -1031 Lab Results - Last 24 hrs: Laboratory Results - last 24 hr 05/17/17 05/20/17 05/20/17 Range/Units 07:07 05:51 05:51 WBC 5.67 (4.23-9.07) K/mm3 RBC 3.36 L (4.63-6.08) M/mm3 Hgb 10.8 L (13.7-17.5) gm/L Hct 32.8 L (40.1-51.0) % MCV 97.6 H (79.0-92.2) fl MCH 32.1 (25.7-32.2) pg MCHC 32.9 (32.2-35.5) g/dl RDW Std Deviation 49.4 H (35.1-43.9) fL Plt Count 187 (163-337) K/mm3 MPV 10.1 (9.4-12.3) fl Neut % (Auto) 60.2 (34.0-67.9) % Lymph % (Auto) 22.8 (21.8-53.1) % [place] % (Auto) 8.8 (5.3-12.2) % Eos % (Auto) 7.1 H (0.8-7.0) Baso % (Auto) 0.7 (0.1-1.2) % Neut # (Auto) 3.42 (1.78-5.38) K/mm3 Lymph # (Auto) 1.29 L (1.32-3.57) K/mm3 [place] # (Auto) 0.50 (0.30-0.82) K/mm3 Eos # (Auto) 0.40 (0.04-0.54) K/mm3 Baso # (Auto) 0.04 (0.01-0.08) K/mm3 PT (8.0-13.0) SECONDS INR Sodium 141 (136-145) mEq/L Potassium 4.4 (3.5-5.1) mEq/L Chloride 107 (98-107) mEq/L Carbon Dioxide 32 (21-32) mEq/L Anion Gap 6.4 (5-15) BUN 22 H (7-18) mg/dL Creatinine 1.0 (0.7-1.3) mg/dL Est Cr Clr Drug Dosing 48.45 mL/min Estimated GFR (MDRD) > 60 (>60) mL/min BUN/Creatinine Ratio 22.0 H (14-18) Glucose 94 (83-115) mg/dL Calcium 8.6 (8.5-10.1) mg/dL Magnesium 1.9 (1.8-2.4) mg/dl Vitamin D 25-Hydroxy 57 (30-100) ng/mL 05/20/17 Range/Units 05:51 WBC (4.23-9.07) K/mm3 RBC (4.63-6.08) M/mm3 Hgb (13.7-17.5) gm/L Hct (40.1-51.0) % MCV (79.0-92.2) fl MCH (25.7-32.2) pg MCHC (32.2-35.5) g/dl RDW Std Deviation (35.1-43.9) fL Plt Count (163-337) K/mm3 MPV (9.4-12.3) fl Neut % (Auto) (34.0-67.9) % Lymph % (Auto) (21.8-53.1) % [place] % (Auto) (5.3-12.2) % Eos % (Auto) (0.8-7.0) Baso % (Auto) (0.1-1.2) % Neut # (Auto) (1.78-5.38) K/mm3 Lymph # (Auto) (1.32-3.57) K/mm3 [place] # (Auto) (0.30-0.82) K/mm3 Eos # (Auto) (0.04-0.54) K/mm3 Baso # (Auto) (0.01-0.08) K/mm3 PT 25.4 H (8.0-13.0) SECONDS INR 2.21 Sodium (136-145) mEq/L Potassium (3.5-5.1) mEq/L Chloride (98-107) mEq/L Carbon Dioxide (21-32) mEq/L Anion Gap (5-15) BUN (7-18) mg/dL Creatinine (0.7-1.3) mg/dL Est Cr Clr Drug Dosing mL/min Estimated GFR (MDRD) (>60) mL/min BUN/Creatinine Ratio (14-18) Glucose (83-115) mg/dL Calcium (8.5-10.1) mg/dL Magnesium (1.8-2.4) mg/dl Vitamin D 25-Hydroxy (30-100) ng/mL TACOS Results - Last 24 hrs: Microbiology 05/15/17 18:20 Aerobic Blood Culture - Preliminary Blood - Venous - Lab Draw NO GROWTH AFTER 4 DAYS Anaerobic Blood Culture - Preliminary NO GROWTH AFTER 4 DAYS 05/15/17 18:05 Aerobic Blood Culture - Preliminary Blood - Venous NO GROWTH AFTER 4 DAYS Anaerobic Blood Culture - Preliminary NO GROWTH AFTER 4 DAYS Med Orders - Current: Current Medications Acetaminophen (Tylenol) 650 mg PO Q4H PRN PRN Reason: Pain (Mild 1-3)/fever Hydrocodone Bitart/Acetaminophen ([place] 325-5 Mg) 1 tab PO Q4H PRN PRN Reason: Pain (moderate 4-6) Albuterol (Proventil Hfa) 0 gm INH Q6H PRN PRN Reason: Shortness of Breath Albuterol/Ipratropium (Duoneb 3.0-0.5 Mg/3 Ml) 3 ml NEB Q4H PRN PRN Reason: Shortness Of Breath/wheezing Last Admin: 05/20/17 06:15 Dose: 3 ml Ascorbic Acid (Vitamin C) 500 mg PO DAILY [facility] Last Admin: 05/19/17 08:32 Dose: 500 mg Bisacodyl (Dulcolax) 5 mg PO DAILY PRN PRN Reason: Constipation Last Admin: 05/20/17 05:58 Dose: 5 mg Carbidopa/Levodopa (Sinemet 25-100 Mg) 1 tab PO TIDAC [facility] Last Admin: 05/20/17 06:01 Dose: 1 tab Cholecalciferol (Vitamin D3) 500 units PO DAILY [facility] Last Admin: 05/19/17 08:33 Dose: 500 units Docusate Sodium (Colace) 100 mg PO BID PRN PRN Reason: Constipation Furosemide (Lasix) 40 mg PO DAILY@0600 [facility] Last Admin: 05/20/17 05:58 Dose: 40 mg Furosemide (Lasix) 20 mg PO DAILY@1400 [facility] Last Admin: 05/19/17 15:21 Dose: 20 mg Guaifenesin (Mucinex) 600 mg PO BID [facility] Last Admin: 05/19/17 21:16 Dose: 600 mg Hydralazine HCl (Apresoline) 10 mg IVPUSH Q4H PRN PRN Reason: Hypertension Hydromorphone HCl (Dilaudid) 0.25 mg IVPUSH Q4H PRN PRN Reason: Pain (severe 7-10) Promethazine HCl 12.5 mg/ (Sodium Chloride) 50.5 mls @ 100 mls/hr IV Q6H PRN PRN Reason: Nausea/Vomiting Sodium Chloride (Normal Saline) 1,000 mls @ 30 mls/hr IV ASDIRECTED [facility] Last Admin: 05/19/17 21:16 Dose: 30 mls/hr Levofloxacin (Levaquin) 500 mg PO Q24H [facility] Last Admin: 05/19/17 18:02 Dose: 500 mg Lorazepam (Ativan) 0.25 mg IV Q6H PRN PRN Reason: Anxiety Lorazepam (Ativan) 2 mg IVPUSH Q4H PRN PRN Reason: Seizures Losartan Potassium (Cozaar) 50 mg PO DAILY [facility] Last Admin: 05/19/17 08:34 Dose: 50 mg Magnesium Sulfate (Pharmacy To Dose - Magnesium Replacement) 0 dose .XX ASDIRECTED PRN PRN Reason: RX TO WATCH MAG LEVELS Metoprolol Tartrate (Lopressor) 5 mg IVPUSH Q4H PRN PRN Reason: Tachycardia Mometasone Furoate/Formoterol Fumar (Dulera 200-5 Mcg) 2 puff IH BID [facility] Last Admin: 05/20/17 08:14 Dose: 2 puff Nitroglycerin (Nitrostat) 0.4 mg SL ASDIRECTED PRN PRN Reason: Chest Pain Ondansetron HCl (Zofran) 4 mg IV Q6H PRN PRN Reason: Nausea/Vomiting Lecithin Tablets 0 each PO DAILY [facility] Last Admin: 05/19/17 08:34 Dose: Not Given Vitamin A 10,000 (Units) 0 each PO DAILY [facility] Last Admin: 05/19/17 08:35 Dose: Not Given Polyethylene Glycol (Miralax) 17 gm PO DAILY PRN PRN Reason: Constipation Potassium Chloride (Klor-Con 10) 5 meq PO DAILY [facility] Last Admin: 05/19/17 08:33 Dose: 5 meq Potassium Chloride (Pharmacy To Dose - Potassium Replacement) 0 dose .XX ASDIRECTED PRN PRN Reason: RX TO WATCH K LEVELS Saccharomyces Boulardii (Florastor) 250 mg PO DAILY [facility] Last Admin: 05/19/17 08:32 Dose: 250 mg Senna/Docusate Sodium (Senna Plus) 1 tab PO BID PRN PRN Reason: Constipation Last Admin: 05/20/17 05:58 Dose: 1 tab Tamsulosin HCl (Flomax) 0.4 mg PO DAILY [facility] Last Admin: 05/19/17 08:33 Dose: 0.4 mg Temazepam (Restoril) 7.5 mg PO BEDTIME PRN PRN Reason: Sleep Last Admin: 05/17/17 21:09 Dose: 7.5 mg Vitamin B Complex/Vitamin C (Super B With Vitamin C) 1 cap PO DAILY [facility] Last Admin: 05/19/17 08:32 Dose: 1 cap Vitamin E (Vitamin E) 400 units PO DAILY [facility] Last Admin: 05/19/17 08:32 Dose: 400 units Warfarin Sodium (Pharmacy To Dose - Warfarin) 0 dose PO ASDIRECTED PRN PRN Reason: RX TO DOSE Discontinued Medications Furosemide (Lasix) 20 mg PO DAILY [facility] Last Admin: 05/19/17 08:34 Dose: 20 mg Sodium Chloride (Normal Saline) 1,000 mls @ 125 mls/hr IV ASDIRECTED [facility] Last Infusion: 05/16/17 11:02 Dose: Infused Levofloxacin/Dextrose 750 mg/ (Premix) 150 mls @ 100 mls/hr IV ONETIME ONE Stop: 05/15/17 19:22 Last Admin: 05/15/17 18:54 Dose: 100 mls/hr Levofloxacin/Dextrose 500 mg/ (Premix) 100 mls @ 100 mls/hr IV Q24H [facility] Last Admin: 05/16/17 18:34 Dose: 100 mls/hr Magnesium Sulfate (Magnesium Sulfate 2 Gm In Water 50 Ml) 50 mls @ 50 mls/hr IV ONETIME ONE Stop: 05/17/17 11:29 Last Admin: 05/17/17 11:00 Dose: 50 mls/hr Mometasone Furoate/Formoterol Fumar (Dulera 200-5 Mcg) 2 puff IH BIDRT [facility] Last Admin: 05/16/17 08:16 Dose: 2 puff Saccharomyces Boulardii (Florastor) 250 mg PO ONETIME ONE Stop: 05/15/17 21:01 Last Admin: 05/15/17 20:10 Dose: 250 mg Warfarin Sodium (Coumadin) 2.5 mg PO WeFr@1800 [facility] Warfarin Sodium (Coumadin) 5 mg PO SuMoTuThSa@1800 [facility] Last Admin: 05/15/17 20:10 Dose: 5 mg Warfarin Sodium (Coumadin Sliding Scale) 0 each PO DAILY@1800 [facility] Stop: 05/16/17 21:00 Last Admin: 05/16/17 18:49 Dose: Not Given Warfarin Sodium (Pharmacy To Dose - Warfarin) 1 dose PO ASDIRECTED PRN PRN Reason: RX TO DOSE Warfarin Sodium (Coumadin) 2.5 mg PO ONETIME ONE Stop: 05/17/17 18:01 Last Admin: 05/17/17 18:21 Dose: 2.5 mg Warfarin Sodium (Coumadin) 5 mg PO ONETIME ONE Stop: 05/18/17 18:01 Last Admin: 05/18/17 18:47 Dose: 5 mg Warfarin Sodium (Coumadin) 5 mg PO ONETIME ONE Stop: 05/19/17 18:01 Last Admin: 05/19/17 17:50 Dose: 5 mg - Exam Quality Assessment: Reports: Supplemental Oxygen, Urine Catheter, DVT Prophylaxis General: Reports: Alert, Oriented, Cooperative, No Acute Distress HEENT: Reports: Pupils Equal, Pupils Reactive, EOMI, Mucous Membr. Moist/[place] Neck: Reports: Supple Lungs: Reports: Normal Respiratory Effort, Decreased Breath Sounds (bases), Wheezing (left base with exp this am) Cardiovascular: Reports: Irregular Rhythm GI/Abdominal Exam: Normal Bowel Sounds, Soft, Non-Tender (Male) Exam: Other (jeffery cath draining clear yellow urine) Rectal (Males) Exam: Deferred Back Exam: Reports: Normal Inspection Extremities: Normal Inspection, No Pedal Edema, Normal Capillary Refill Skin: Reports: Warm, Dry Neurological: Reports: No New Focal Deficit Psy/Mental Status: Reports: Alert, Normal Affect, Normal Mood *Q Meaningful Use (DIS) - VTE *Q VTE Criteria *Q: - Stroke *Q Stroke Criteria *Q: - AMI *Q AMI Criteria *Q:
== END 2017-05-20 11:05 | DRG 871 ==
LOC: JD.ICU 15:24 → JD.MS 05-17 01:15
PROVIDERS: ADMIT Internal Medicine; ATTEND Internal Medicine
DX: A41.9 Sepsis, unspecified organism (principal); J18.9 Pneumonia, unspecified organism; T83.511A Infection and inflammatory reaction due to indwelling urethral catheter, initial encounter; B96.20 Unspecified Escherichia coli [E. coli] as the cause of diseases classified elsewhere; E88.09 Other disorders of plasma-protein metabolism, not elsewhere classified; R53.1 Weakness; R79.1 Abnormal coagulation profile; G20 Parkinson's disease; I10 Essential (primary) hypertension; I48.2 Chronic atrial fibrillation; N40.0 Benign prostatic hyperplasia without lower urinary tract symptoms; Z86.73 Personal history of transient ischemic attack (TIA), and cerebral infarction without residual deficits; Z85.51 Personal history of malignant neoplasm of bladder; Z66 Do not resuscitate; H91.90 Unspecified hearing loss, unspecified ear; J45.909 Unspecified asthma, uncomplicated; K59.09 Other constipation; Z88.0 Allergy status to penicillin; Z79.01 Long term (current) use of anticoagulants; Z79.899 Other long term (current) drug therapy; Z99.3 Dependence on wheelchair
CPT/HCPCS: 36415; 71010; 71010-26; 71250; 71250-26; 80048; 82040; 82306; 83735; 84439; 84443; 85025; 85610; 86140; 87040; 87086; 87088; 87186; 94640; 94640-76; 94664; 94761; 97110-GO; 97110-GP; 97116-GP; 97166-GO; 97530-GO; A9270; A9270-GY; J1956; J3475; J7040

== ENCOUNTER 2017-10-02 14:41 | Emergency (ER) | payer OTHER ==
[2017-10-02] MEDS ORDERED: Lidocaine 2% Jelly 10 ML Urojet MUCMEM ONE (15:00)
[2017-10-02 15:22] VITALS: BP 132/73
--- NOTE | 2017-10-02 16:09 | EDM.PDOC ---
ED HPI GENERAL MEDICAL PROBLEM - General Chief Complaint: Genitourinary Problem Stated Complaint: JEFFERY CATH PLACEMENT Time Seen by Provider: 10/02/17 14:59 Source of Information: Reports: Patient, Other (PACE nurse) History Limitations: Reports: No Limitations - History of Present Illness INITIAL COMMENTS - FREE TEXT/NARRATIVE: The patient was due for his monthly jeffery cath change. The PACE nurse could not reinsert a new cath. She came for help. Onset: Sudden Duration: Minutes: Quality: Reports: Sharp Severity: Moderate Improves with: Reports: None Worsens with: Reports: None Associated Symptoms: Reports: No Other Symptoms - Related Data Allergies Allergy/AdvReac Type Severity Reaction Status Date / Time Penicillins Allergy Unknown Verified 10/02/17 15:22 Home Meds: Home Meds Albuterol [Ventolin HFA] 2 puff INH Q6H PRN 02/02/15 [History] Ascorbate Calcium [Vitamin C] 500 mg PO DAILY 02/02/15 [History] Carbidopa/Levodopa [Carbidopa-Levodopa 25-100] 1 tab PO TID 02/02/15 [History] Fluticasone/Salmeterol [Advair Diskus 250-50] 1 puff INH DAILY 02/02/15 [History ] Furosemide 40 mg PO BID 02/02/15 [History] Vitamin A 10,000 units PO DAILY 02/02/15 [History] Warfarin [Coumadin] 2.5 mg PO DAILY 02/02/15 [History] Warfarin [Coumadin] 5 mg PO DAILY 02/02/15 [History] Nitroglycerin [Nitrostat] 0.4 mg SL ASDIRECTED PRN 05/15/17 [History] Potassium Chloride [Klor-Con 10] 10 meq PO DAILY 05/15/17 [History] guaiFENesin [Mucinex] 600 mg PO BID #60 tab.er 05/20/17 [Rx] Cholecalciferol (Vitamin D3) [Vitamin D3] 400 units PO DAILY 08/05/17 [History] Polyethylene Glycol 3350 [MiraLAX] 17 gm PO DAILY PRN 08/05/17 [History] Cranberry 1 tab PO DAILY 10/02/17 [History] Phenazopyridine HCl [Pyridium] 100 mg PO TID 10/02/17 [History] Past Medical History HEENT History: Reports: Hard of Hearing Cardiovascular History: Reports: Afib, Hypertension Respiratory History: Reports: Asthma Gastrointestinal History: Reports: Chronic Constipation, Other (See Below) Other Gastrointestinal History: multiple hernias Genitourinary History: Reports: Other (See Below) Other Genitourinary History: bladder CA, now has chronic catheter. last changed 05/15/17. 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 Oncologic (Cancer) History: Reports: Bladder - Past Surgical History HEENT Surgical History: Reports: Cataract Surgery Musculoskeletal Surgical History: Reports: Other (See Below) Social & Family History - Family History Family Medical History: Noncontributory - Tobacco Use Smoking Status *Q: Never Smoker Second Hand Smoke Exposure: No - Caffeine Use Caffeine Use: Reports: Coffee - Alcohol Use Days Per Week of Alcohol Use: 0 - Recreational Drug Use Recreational Drug Use: No - Living Situation & Occupation Living situation: Reports: Occupation: Retired ED ROS GENERAL - Review of Systems Review Of Systems: See Below Constitutional: Reports: No Symptoms HEENT: Reports: No Symptoms Respiratory: Reports: No Symptoms Cardiovascular: Reports: No Symptoms Endocrine: Reports: No Symptoms GI/Abdominal: Reports: No Symptoms : Reports: Other (Jeffery cath) ED EXAM, RENAL/ - Physical Exam Exam: See Below Exam Limited By: No Limitations General Appearance: Alert, No Apparent Distress Ears: Normal External Exam Nose: Normal Inspection Head: Atraumatic, Normocephalic Neck: Normal Inspection Respiratory/Chest: No Respiratory Distress, Lungs Clear, Normal Breath Sounds Cardiovascular: Regular Rate, Rhythm, No Edema, No Murmur GI/Abdominal: Soft, Non-Tender, No Organomegaly, No Mass Back Exam: Normal Inspection Extremities: Normal Inspection Course - Vital Signs Last Recorded V/S: Last Vital Signs Temp 98.7 F 10/02/17 15:19 Pulse 65 10/02/17 15:19 Resp 18 10/02/17 15:19 BP 132/73 10/02/17 15:19 Pulse Ox 95 10/02/17 15:19 - Orders/Labs/Meds Orders: Active Orders 24 hr Category Date Time Status Insert Jeffery Catheter [Insert Urinary Catheter] [OM.PC] Care 10/02/17 16:00 Ordered Q24H Urinary Catheter Assessment [RC] ASDIRECTED Care 10/02/17 15:58 Active Meds: Medications Discontinued Medications Generic Name Dose Route Start Last Admin Trade Name Charlie PRN Reason Stop Dose Admin Lidocaine HCl 10 ml 10/02/17 15:00 10/02/17 15:05 Xylocaine 2% Jelly MUCMEM 10/02/17 15:01 10 ml ONETIME ONE Administration - Re-Assessments/Exams Free Text/Narrative Re-Assessment/Exam: 10/02/17 16:08 My nurse was able to insert a cath. I will discharge him home. Departure - Departure Time of Disposition: 16:10 Disposition: Home, Self-Care 01 Condition: Good Clinical Impression: Jeffery catheter problem Qualifiers: Encounter type: initial encounter Qualified Code(s): T83.9XXA - Unspecified complication of genitourinary prosthetic device, implant and graft, initial encounter - Discharge Information Referrals: PCP,Unknown [Primary Care Provider] - Additional Instructions: Follow up with your doctor as needed. - My Orders Last 24 Hours: My Active Orders 10/02/17 15:58 Urinary Catheter Assessment [RC] ASDIRECTED 10/02/17 16:00 Insert Jeffery Catheter [Insert Urinary Catheter] [OM.PC] Q24H - Assessment/Plan Last 24 Hours: My Active Orders 10/02/17 15:58 Urinary Catheter Assessment [RC] ASDIRECTED 10/02/17 16:00 Insert Jeffery Catheter [Insert Urinary Catheter] [OM.PC] Q24H
== END 2017-10-02 16:20 | disposition home or self-care (01) ==
LOC: JD.ED 14:41
DX: T83.091A Other mechanical complication of indwelling urethral catheter, initial encounter (principal); I10 Essential (primary) hypertension; I48.91 Unspecified atrial fibrillation; Z88.0 Allergy status to penicillin; Z79.82 Long term (current) use of aspirin; Z79.899 Other long term (current) drug therapy; Z85.51 Personal history of malignant neoplasm of bladder
CPT/HCPCS: 51702; 99282; 99283-25